=== PATIENT | male | born 1955 | race Caucasian/White ===

== ENCOUNTER 2018-06-05 00:54 | Outpatient (CLI) | payer MEDICAID, SELFPAY ==
--- NOTE | 2018-06-05 11:10 | DI.RAD_ITS ---
SYMPTOM/DIAGNOSIS: MALIGNANCY NEOPLASM OF COLON, C18.2 PA AND LATERAL CHEST: The examination is compared with previous examination of 02/20/18. Previously noted right mid lung intrapulmonary nodule has increased in size in comparison with the previous examination and now measures about 27 mm. in greatest diameter. Posterior pleural based radiodensities which appear to lie on the left are again noted and are more prominent than on the previous examination. Small left pleural effusion noted. CONCLUSION: Findings consistent with increasing size of intrapulmonary metastases from reported colon carcinoma.
== END 2018-06-05 01:14 ==
PROVIDERS: PCP Family Medicine; Visit Provider Internal Medicine Medical Oncology
DX: C18.2 Malignant neoplasm of ascending colon (principal); C78.01 Secondary malignant neoplasm of right lung; C78.02 Secondary malignant neoplasm of left lung; J90 Pleural effusion, not elsewhere classified
CPT/HCPCS: 71046

== ENCOUNTER 2018-06-05 01:44 | Outpatient (CLI) | payer MEDICAID, SELFPAY ==
[2018-06-05 12:26] LABS: Abs Immature Grans 0.01 k/cumm (0.0-0.09); Absolute Basophil Count 0.03 k/cumm (0.0-0.2); Absolute Eosinophil Count 0.32 k/cumm (0.0-0.7); Absolute Lymphocyte Count 0.96 k/cumm (1.2-3.4); Absolute Monocyte Count 0.53 k/cumm (0.11-0.7); Basophils % 0.5; Eosinophils % 5.7; HCT 44.2 % (40.0-50.0); HGB 15.1 g/dL (13.5-17.5); Immature Grans % 0.2; Mean Corp. HGB Concentration 34.2 g/dL (32.0-36.0); Mean Corpuscular Hemoglobin 27.8 pg (27.0-33.0); Mean Corpuscular Volume 81.4 fL (80-95); Mean Platelet Volume 9.2 fL (8.0-11.0); Monocytes % 9.4; Neutrophils % 67.2; Platelet Count 199 x1000/uL (130-400); RBC 5.43 m/cumm (4.50-6.00); RBC Distribution Width 14.7 % (11.8-14.1); White Blood Cell Count 5.65 k/cumm (4.4-10.8)
[2018-06-05 12:40] LABS: ALT 43 U/L (12-78); AST 33 U/L (15-37); Albumin 3.3 g/dL (3.4-5.0); Alkaline Phosphatase 125 U/L (46-116); Anion Gap 9.3 mmol/L (3-11); BUN 16 mg/dL (7-18); Bilirubin, Total 0.7 mg/dL (0.2-1.0); CO2 26.7 mmol/L (21.0-32.0); CREATININE 1.08 mg/dL (0.70-1.30); Calcium 9.1 mg/dL (8.5-10.1); Chloride 103 mmol/L (98-107); Glucose 124 mg/dL (70-100); Sodium 139 mmol/L (136-145); Total Protein 7.6 g/dL (6.4-8.2)
[2018-06-06 10:03] LABS: CEA 5.1 ng/ml
== END 2018-06-05 02:04 ==
PROVIDERS: PCP Family Medicine; Visit Provider Internal Medicine Medical Oncology
DX: E11.9 Type 2 diabetes mellitus without complications (principal); C18.2 Malignant neoplasm of ascending colon
CPT/HCPCS: 36415; 80053; 82378; 83036; 85025

== ENCOUNTER 2018-09-29 01:37 | Outpatient (CLI) | payer MEDICAID, SELFPAY ==
[2018-09-29 11:22] LABS: Abs Immature Grans 0.01 k/cumm (0.0-0.09); Absolute Basophil Count 0.04 k/cumm (0.0-0.2); Absolute Eosinophil Count 0.27 k/cumm (0.0-0.7); Absolute Lymphocyte Count 0.88 k/cumm (1.2-3.4); Absolute Monocyte Count 0.48 k/cumm (0.11-0.7); Absolute Neutrophil Count 3.86 k/cumm (1.2-6.7); Basophils % 0.7; Eosinophils % 4.9; HCT 44.6 % (40.0-50.0); HGB 14.9 g/dL (13.5-17.5); Immature Grans % 0.2; Lymphocytes % 15.9; Mean Corp. HGB Concentration 33.4 g/dL (32.0-36.0); Mean Corpuscular Hemoglobin 27.8 pg (27.0-33.0); Mean Corpuscular Volume 83.2 fL (80-95); Mean Platelet Volume 9.7 fL (8.0-11.0); Monocytes % 8.7; Neutrophils % 69.6; Platelet Count 192 x1000/uL (130-400); RBC 5.36 m/cumm (4.50-6.00); RBC Distribution Width 14.6 % (11.8-14.1); White Blood Cell Count 5.54 k/cumm (4.4-10.8)
[2018-09-29 11:42] LABS: Hemoglobin A1C 7.4 % (4.5-6.2)
[2018-09-29 11:45] LABS: ALT 44 U/L (12-78); AST 31 U/L (15-37); Albumin 3.3 g/dL (3.4-5.0); Alkaline Phosphatase 127 U/L (46-116); Anion Gap 9.5 mmol/L (3-11); BUN 15 mg/dL (7-18); Bilirubin, Total 0.6 mg/dL (0.2-1.0); CO2 26.5 mmol/L (21.0-32.0); CREATININE 1.11 mg/dL (0.70-1.30); Calcium 9.2 mg/dL (8.5-10.1); Chloride 102 mmol/L (98-107); Glucose 150 mg/dL (70-100); Potassium 4.1 mmol/L (3.5-5.1); Sodium 138 mmol/L (136-145); Total Protein 7.4 g/dL (6.4-8.2)
[2018-10-02 11:25] LABS: CEA 6.8 ng/ml
== END 2018-09-29 01:57 ==
PROVIDERS: Internal Medicine Medical Oncology; PCP Family Medicine; Visit Provider Family Medicine
DX: E11.9 Type 2 diabetes mellitus without complications (principal); C20 Malignant neoplasm of rectum
CPT/HCPCS: 36415; 80053; 82378; 83036; 85025

== ENCOUNTER 2018-10-09 00:25 | Outpatient (CLI) | payer MEDICAID, SELFPAY ==
[2018-10-09 08:47] LABS: Abs Immature Grans 0.01 k/cumm (0.0-0.09); Absolute Basophil Count 0.04 k/cumm (0.0-0.2); Absolute Eosinophil Count 0.26 k/cumm (0.0-0.7); Absolute Lymphocyte Count 0.83 k/cumm (1.2-3.4); Absolute Neutrophil Count 3.62 k/cumm (1.2-6.7); Basophils % 0.8; Eosinophils % 4.9; HCT 43.2 % (40.0-50.0); HGB 14.5 g/dL (13.5-17.5); Immature Grans % 0.2; Lymphocytes % 15.8; Mean Corp. HGB Concentration 33.6 g/dL (32.0-36.0); Mean Corpuscular Hemoglobin 27.8 pg (27.0-33.0); Mean Corpuscular Volume 82.9 fL (80-95); Mean Platelet Volume 9.3 fL (8.0-11.0); Monocytes % 9.5; Neutrophils % 68.8; Platelet Count 202 x1000/uL (130-400); RBC 5.21 m/cumm (4.50-6.00); RBC Distribution Width 14.6 % (11.8-14.1); White Blood Cell Count 5.26 k/cumm (4.4-10.8)
[2018-10-09 08:57] LABS: ALT 37 U/L (12-78); AST 31 U/L (15-37); Albumin 3.2 g/dL (3.4-5.0); Alkaline Phosphatase 124 U/L (46-116); Anion Gap 11.9 mmol/L (3-11); BUN 14 mg/dL (7-18); Bilirubin, Total 0.6 mg/dL (0.2-1.0); CO2 25.1 mmol/L (21.0-32.0); Calcium 8.3 mg/dL (8.5-10.1); Chloride 102 mmol/L (98-107); Glucose 208 mg/dL (70-100); Potassium 3.8 mmol/L (3.5-5.1); Sodium 139 mmol/L (136-145); Total Protein 7.6 g/dL (6.4-8.2)
[2018-10-09] MEDS: Omnipaque 350 MG/ML 50 ML BTL PO ×2 (09:10→10:13)
[2018-10-09] MEDS: Breeza Beverage 473 ML BTL PO (09:11)
--- NOTE | 2018-10-09 09:41 | DI.CT_ITS ---
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 Most recent comparison is 06/03/17. CT SCAN OF THE ABDOMEN AND PELVIS: The liver is normal in size. No evidence of a hepatic mass is seen. The portal, and superior mesenteric and splenic veins are all patent. The patient appears to be status post cholecystectomy. No biliary ductal dilatation is seen. The pancreas is unremarkable. There are a few calcifications seen in the spleen, likely reflecting prior granulomatous disease. The spleen is otherwise unremarkable. No evidence of an adrenal mass is present. The kidneys show normal and symmetric enhancement. No suspicious solid renal mass or obstruction is seen. There is a small cyst on the lower pole of the right kidney. The urinary bladder is intact and incompletely distended. The reproductive organs are unremarkable. There is atherosclerosis of the abdominal aorta but no aneurysmal dilatation is present. No evidence of a significant abdominal or pelvic adenopathy, ascites or pneumoperitoneum is present. There has been resection of the descending and sigmoid colon. There is a left colostomy in place. There does appear to be a moderate-sized fat-containing parastomal hernia. There is a right-sided enterostomy. The ostomy site contains a herniation of an unremarkable loop of small bowel. The herniated small bowel shows no evidence of obstruction or strangulation. The remainder of the bowel is unremarkable. No aggressive osseous lesions are identified. IMPRESSION: No evidence of abdominal or pelvic metastatic disease. CT SCAN OF THE CHEST: There is atherosclerosis of the thoracic aorta but no aneurysmal dilatation is seen. The heart size is within normal limits. No significant pericardial effusion is present. Coronary artery calcifications are seen. No significant thoracic adenopathy is appreciated. There is a moderate-sized left pleural effusion. No significant right pleural effusion is seen. Within the left pleural effusion, there do appear to be soft tissue nodules along the wall suspicious for metastases. There are several pulmonary masses present. There is a 2.2 x 1.9 cm mass in the right lower lobe. This has shown interval increase in size since 06/03/17, at which time it measured 1 x 1.2 cm. The largest mass in the left lower lobe measures 1.9 x 1.9 cm and was not present on the prior examination. Area of consolidation is seen adjacent to the right pleural effusion. This may represent atelectasis or pneumonia. No aggressive osseous lesions are seen. IMPRESSION: 1. Findings consistent with thoracic metastatic disease with multiple pulmonary nodules, which have shown interval increase in size and number since the most recent CT scan from 06/03/17. 2. Moderate-sized left pleural effusion with soft tissues seen within the pleural fluid suspicious for metastases. 3. Left basilar subjacent infiltrate, which may represent atelectasis or pneumonia.
[2018-10-11 09:21] LABS: CEA 5.2 ng/ml
== END 2018-10-09 00:45 ==
PROVIDERS: PCP Family Medicine; Visit Provider Nurse Practitioner Family
DX: C20 Malignant neoplasm of rectum (principal); C18.2 Malignant neoplasm of ascending colon; C78.02 Secondary malignant neoplasm of left lung; C78.01 Secondary malignant neoplasm of right lung; J90 Pleural effusion, not elsewhere classified; R91.8 Other nonspecific abnormal finding of lung field
CPT/HCPCS: 36415; 74177; 80053; 71260; 82378; 85025; Q9967

== ENCOUNTER 2018-11-20 01:01 | Outpatient (CLI) | payer MEDICAID, SELFPAY ==
--- NOTE | 2018-11-20 09:52 | DI.RAD_ITS ---
SYMPTOMS/DIAGNOSIS: METASTATIC RECTAL CA, LUNG LESIONS AND PLEURAL EFFUSION, C18.2 PA AND LATERAL CHEST: Examination is compared with the previous examination of 06/05/18. The patient reportedly has known intrapulmonary metastases from colon carcinoma. Pleural- based radiodensity projected posteriorly on the lateral view is more prominent than on the previous examination. Right-sided apparent intrapulmonary nodule appears to have increased in size as well and now measures roughly 3.2 cm in greatest diameter. No gross consolidation seen. No significant pleural effusion seen. Cardiac size within normal limits. CONCLUSION: Interval increase in size of presumed metastatic lesions.
== END 2018-11-20 01:21 ==
PROVIDERS: PCP Family Medicine; Visit Provider Internal Medicine Hematology & Oncology
DX: C18.2 Malignant neoplasm of ascending colon (principal); R91.8 Other nonspecific abnormal finding of lung field
CPT/HCPCS: 71046

== ENCOUNTER 2018-11-20 01:59 | Outpatient (CLI) | payer MEDICAID, SELFPAY ==
[2018-11-20 10:35] LABS: Abs Immature Grans 0.01 k/cumm (0.0-0.09); Absolute Basophil Count 0.03 k/cumm (0.0-0.2); Absolute Eosinophil Count 0.18 k/cumm (0.0-0.7); Absolute Lymphocyte Count 0.98 k/cumm (1.2-3.4); Absolute Monocyte Count 0.55 k/cumm (0.11-0.7); Absolute Neutrophil Count 3.98 k/cumm (1.2-6.7); Basophils % 0.5; Eosinophils % 3.1; HCT 45.3 % (40.0-50.0); HGB 15.4 g/dL (13.5-17.5); Immature Grans % 0.2; Lymphocytes % 17.1; Mean Corpuscular Hemoglobin 27.7 pg (27.0-33.0); Mean Corpuscular Volume 81.5 fL (80-95); Mean Platelet Volume 9.2 fL (8.0-11.0); Monocytes % 9.6; Neutrophils % 69.5; Platelet Count 195 x1000/uL (130-400); RBC 5.56 m/cumm (4.50-6.00); RBC Distribution Width 14.6 % (11.8-14.1); White Blood Cell Count 5.73 k/cumm (4.4-10.8)
[2018-11-20 11:32] LABS: ALT 41 U/L (12-78); AST 26 U/L (15-37); Albumin 3.6 g/dL (3.4-5.0); Alkaline Phosphatase 121 U/L (46-116); Anion Gap 10.1 mmol/L (3-11); BUN 15 mg/dL (7-18); Bilirubin, Total 0.8 mg/dL (0.2-1.0); CO2 26.9 mmol/L (21.0-32.0); CREATININE 1.14 mg/dL (0.70-1.30); Calcium 9.5 mg/dL (8.5-10.1); Chloride 101 mmol/L (98-107); Glucose 161 mg/dL (70-100); Potassium 4.5 mmol/L (3.5-5.1); Sodium 138 mmol/L (136-145); Total Protein 7.6 g/dL (6.4-8.2)
[2018-12-11 10:45] LABS: CEA 5.1 ng/ml
== END 2018-11-20 02:19 ==
PROVIDERS: Nurse Practitioner Family; PCP Family Medicine; Visit Provider Family Medicine
DX: C18.2 Malignant neoplasm of ascending colon (principal)
CPT/HCPCS: 36415; 80053; 82378; 85025

== ENCOUNTER 2019-02-24 01:52 | Outpatient (CLI) | payer MEDICAID, SELFPAY ==
[2019-02-26 06:36] LABS: Hemoglobin A1C 7.1 % (4.5-6.2)
== END 2019-02-24 02:12 ==
PROVIDERS: PCP Family Medicine; Visit Provider Family Medicine
DX: E11.9 Type 2 diabetes mellitus without complications (principal)
CPT/HCPCS: 36415; 83036

== ENCOUNTER 2019-03-05 00:36 | Outpatient (CLI) | payer MEDICAID, SELFPAY ==
--- NOTE | 2019-03-05 09:18 | DI.RAD_ITS ---
SYMPTOMS/DIAGNOSIS: MALIGNANT NEOPLASM ASCENDING COLON, F/U METS FROM COLON CA, C18.2 PA AND LATERAL CHEST: Comparison 11/20/18. The heart size and pulmonary vasculature are within normal limits. There are again seen multiple pulmonary nodules consistent with metastatic disease. The nodule in the right lower lobe has increased in size. It measures 4.1 cm craniocaudad x 3.9 cm transverse compared with 3.3 x 3 cm on the prior examination. There also appears to be a new pulmonary nodule overlying the heart on the lateral view. It measures 3 cm craniocaudad x 2 cm AP. The pleural based nodule posteriorly measures 6.2 cm craniocaudad on the lateral view vs 6.3 cm on the prior examination. No pleural effusions or pneumothoraces are identified. No focal consolidating infiltrates are seen. IMPRESSION: Increase in size of previously noted pulmonary nodule. New pulmonary nodule identified in the anterior chest on the lateral view. The findings suggest overall progression of pulmonary metastatic disease since 11/20/18.
[2019-03-05 10:08] LABS: Abs Immature Grans 0.01 k/cumm (0.0-0.09); Absolute Basophil Count 0.04 k/cumm (0.0-0.2); Absolute Eosinophil Count 0.34 k/cumm (0.0-0.7); Absolute Lymphocyte Count 0.83 k/cumm (1.2-3.4); Absolute Monocyte Count 0.59 k/cumm (0.11-0.7); Absolute Neutrophil Count 3.28 k/cumm (1.2-6.7); Basophils % 0.8; Eosinophils % 6.7; HCT 44.9 % (40.0-50.0); HGB 15.5 g/dL (13.5-17.5); Immature Grans % 0.2; Lymphocytes % 16.3; Mean Corp. HGB Concentration 34.5 g/dL (32.0-36.0); Mean Corpuscular Hemoglobin 27.9 pg (27.0-33.0); Mean Corpuscular Volume 80.9 fL (80-95); Monocytes % 11.6; Neutrophils % 64.4; Platelet Count 206 x1000/uL (130-400); RBC 5.55 m/cumm (4.50-6.00); RBC Distribution Width 14.8 % (11.8-14.1); White Blood Cell Count 5.09 k/cumm (4.4-10.8)
[2019-03-05 10:31] LABS: ALT 44 U/L (12-78); AST 32 U/L (15-37); Albumin 3.5 g/dL (3.4-5.0); Alkaline Phosphatase 131 U/L (46-116); Anion Gap 12.1 mmol/L (3-11); BUN 15 mg/dL (7-18); Bilirubin, Total 0.6 mg/dL (0.2-1.0); CO2 22.9 mmol/L (21.0-32.0); CREATININE 1.08 mg/dL (0.70-1.30); Chloride 104 mmol/L (98-107); Glucose 131 mg/dL (70-100); Potassium 3.9 mmol/L (3.5-5.1); Sodium 139 mmol/L (136-145); Total Protein 7.3 g/dL (6.4-8.2)
[2019-03-06 10:25] LABS: CEA 5.6 ng/ml
== END 2019-03-05 00:56 ==
PROVIDERS: PCP Family Medicine; Visit Provider Internal Medicine Hematology & Oncology
DX: C18.2 Malignant neoplasm of ascending colon (principal); C78.01 Secondary malignant neoplasm of right lung
CPT/HCPCS: 36415; 80053; 71046; 82378; 85025

== ENCOUNTER 2019-06-04 00:57 | Outpatient (CLI) | payer MEDICAID, SELFPAY ==
--- NOTE | 2019-06-04 10:30 | DI.RAD_ITS ---
EXAM: XR CHEST 2V PA LATERAL INDICATION: MALIGNANT NEOPLASM ASCENDING COLON, C18.2, F/U METS FROM COLON CANCER. COMPARISON: XR CHEST 2V PA LATERAL from 03/05/2019 TECHNIQUE: 2D digital imaging was performed. FINDINGS: The examination is compared with most recent chest film of March 05. Heart is not enlarged. Lungs are clear at the apices. Previously described right mid lung mass again noted and unchanged. There appears to be a difficult interval increase in left pleural based radiodensities, fluid and/or masses . IMPRESSION: Increased prominence of left pleural-based radiodensities, fluid and/or masses. If clinically indica papo additional evaluation with CT would be helpful in delineating the exact nature of these changes.
[2019-06-04 10:46] LABS: Hemoglobin A1C 6.9 % (4.5-6.2)
[2019-06-04 10:52] LABS: Abs Immature Grans 0.02 k/cumm (0.0-0.09); Absolute Basophil Count 0.03 k/cumm (0.0-0.2); Absolute Eosinophil Count 0.39 k/cumm (0.0-0.7); Absolute Lymphocyte Count 0.84 k/cumm (1.2-3.4); Absolute Monocyte Count 0.52 k/cumm (0.11-0.7); Absolute Neutrophil Count 3.43 k/cumm (1.2-6.7); Basophils % 0.6; Eosinophils % 7.5; HCT 42.6 % (40.0-50.0); HGB 14.5 g/dL (13.5-17.5); Immature Grans % 0.4; Lymphocytes % 16.1; Mean Corpuscular Hemoglobin 27.4 pg (27.0-33.0); Mean Corpuscular Volume 80.5 fL (80-95); Mean Platelet Volume 8.9 fL (8.0-11.0); Monocytes % 9.9; Neutrophils % 65.5; Platelet Count 224 x1000/uL (130-400); RBC 5.29 m/cumm (4.50-6.00); RBC Distribution Width 14.8 % (11.8-14.1); White Blood Cell Count 5.23 k/cumm (4.4-10.8)
[2019-06-04 10:55] LABS: ALT 28 U/L (16-63); AST 26 U/L (15-37); Albumin 3.3 g/dL (3.4-5.0); Alkaline Phosphatase 112 U/L (46-116); Anion Gap 8.7 mmol/L (3-11); BUN 14 mg/dL (7-18); Bilirubin, Total 0.7 mg/dL (0.2-1.0); CO2 27.3 mmol/L (21.0-32.0); Calcium 8.8 mg/dL (8.5-10.1); Chloride 104 mmol/L (98-107); Glucose 107 mg/dL (70-100); Potassium 4.3 mmol/L (3.5-5.1); Sodium 140 mmol/L (136-145)
[2019-06-05 09:59] LABS: CEA 5.6 ng/ml
== END 2019-06-04 01:17 ==
PROVIDERS: PCP Family Medicine; Visit Provider Internal Medicine Hematology & Oncology
DX: C18.2 Malignant neoplasm of ascending colon (principal); J98.4 Other disorders of lung; C78.01 Secondary malignant neoplasm of right lung; E11.9 Type 2 diabetes mellitus without complications
CPT/HCPCS: 36415; 80053; 71046; 82378; 83036; 85025

== ENCOUNTER 2019-08-16 09:25 | Outpatient (CLI) | payer MEDICAID, SELFPAY ==
[2019-08-16 11:12] LABS: Abs Immature Grans 0.01 k/cumm (0.0-0.09); Absolute Basophil Count 0.03 k/cumm (0.0-0.2); Absolute Eosinophil Count 0.22 k/cumm (0.0-0.7); Absolute Lymphocyte Count 0.95 k/cumm (1.2-3.4); Absolute Monocyte Count 0.56 k/cumm (0.11-0.7); Basophils % 0.5; Eosinophils % 3.7; HCT 42.5 % (40.0-50.0); HGB 14.4 g/dL (13.5-17.5); Immature Grans % 0.2; Lymphocytes % 16.2; Mean Corp. HGB Concentration 33.9 g/dL (32.0-36.0); Mean Corpuscular Hemoglobin 27.2 pg (27.0-33.0); Mean Corpuscular Volume 80.2 fL (80-95); Mean Platelet Volume 8.5 fL (8.0-11.0); Monocytes % 9.5; Neutrophils % 69.9; Platelet Count 260 x1000/uL (130-400); White Blood Cell Count 5.87 k/cumm (4.4-10.8)
[2019-08-16 11:55] LABS: ALT 31 U/L (16-63); AST 28 U/L (15-37); Albumin 3.3 g/dL (3.4-5.0); Alkaline Phosphatase 118 U/L (46-116); Anion Gap 8.5 mmol/L (3-11); BUN 12 mg/dL (7-18); Bilirubin, Total 0.5 mg/dL (0.2-1.0); CO2 26.5 mmol/L (21.0-32.0); CREATININE 1.03 mg/dL (0.70-1.30); Calcium 8.7 mg/dL (8.5-10.1); Chloride 104 mmol/L (98-107); Glucose 120 mg/dL (74-106); Sodium 139 mmol/L (136-145); Total Protein 6.9 g/dL (6.4-8.2)
[2019-08-17 11:34] LABS: CEA 8.2 ng/mL (See Note)
== END 2019-08-16 09:45 ==
PROVIDERS: PCP Family Medicine; Visit Provider Internal Medicine Hematology & Oncology
DX: C18.2 Malignant neoplasm of ascending colon (principal); C77.2 Secondary and unspecified malignant neoplasm of intra-abdominal lymph nodes; E11.9 Type 2 diabetes mellitus without complications
CPT/HCPCS: 36415; 80053; 82378; 83036; 85025

== ENCOUNTER 2019-11-15 00:52 | Outpatient (CLI) | payer MEDICAID, SELFPAY ==
[2019-11-15 08:58] LABS: Abs Immature Grans 0.02 k/cumm (0.0-0.09); Absolute Basophil Count 0.03 k/cumm (0.0-0.2); Absolute Eosinophil Count 0.17 k/cumm (0.0-0.7); Absolute Lymphocyte Count 1.05 k/cumm (1.2-3.4); Absolute Monocyte Count 0.56 k/cumm (0.11-0.7); Absolute Neutrophil Count 4.03 k/cumm (1.2-6.7); Basophils % 0.5; Eosinophils % 2.9; HCT 44.7 % (40.0-50.0); HGB 14.8 g/dL (13.5-17.5); Immature Grans % 0.3 %; Lymphocytes % 17.9; Mean Corp. HGB Concentration 33.1 g/dL (32.0-36.0); Mean Corpuscular Hemoglobin 25.8 pg (27.0-33.0); Mean Platelet Volume 8.8 fL (8.0-11.0); Monocytes % 9.6; Neutrophils % 68.8; Platelet Count 259 x1000/uL (130-400); RBC 5.73 m/cumm (4.50-6.00); RBC Distribution Width 15.3 % (11.8-14.1); White Blood Cell Count 5.86 k/cumm (4.4-10.8)
[2019-11-15 09:14] LABS: ALT 34 U/L (16-63); AST 25 U/L (15-37); Albumin 3.3 g/dL (3.4-5.0); Alkaline Phosphatase 109 U/L (46-116); Anion Gap 8.6 mmol/L (3-11); BUN 14 mg/dL (7-18); Bilirubin, Total 0.6 mg/dL (0.2-1.0); CO2 28.4 mmol/L (21.0-32.0); CREATININE 1.18 mg/dL (0.70-1.30); Chloride 104 mmol/L (98-107); Glucose 67 mg/dL (74-106); Potassium 3.8 mmol/L (3.5-5.1); Sodium 141 mmol/L (136-145)
--- NOTE | 2019-11-15 10:05 | DI.CT_ITS ---
EXAM: CT CHEST/ABD/PEL W CLINICAL HISTORY: colon ca, C18.2,restaging exam TECHNIQUE: Imaging Protocol: Axial computed tomography images with coronal and sagittal reformatted images were created and reviewed CONTRAST MATERIAL: Intravenous: Omnipaque 350 Contrast Oral: yes COMPARISON: CT CHEST/ABD/PEL W from 10/09/2018 FINDINGS: CHEST: Tracheobronchial tree: Patent where visualized. Mediastinum and Lacie: No dominant adenopathy or fluid collection. Pulmonary parenchyma: There has been interval increase in size of right lower lobe pulmonary mass. I t measures 3.5 x 2.8 x 3.9 cm. This compares with 2.5 x 2.1 x 2.5 cm. There has also been interval increase in size of the nodule in the posterior aspect of the left lower lobe. It measures 3.1 x 2.5 cm compared with 2.2 x 1.6 cm on the prior examination. No architectural distortion. Infiltrates in the left upper and left lower lobes which may represent atelectasis, pneumonia or metastatic disease . Pleura: Since the prior examination, there has been progression of the pleural metastatic disease in the left hemithorax. More extensive thickening of the pleura is seen throughout the left hemithorax. There is a persistent small left pleural effusion. Heart: The heart is not dilated. Moderate coronary artery calcification is present. No significant p ericardial effusion. Aorta: Thoracic aorta non-dilated. Atherosclerosis. Lymph nodes: Within normal limits. Bones:Normal. ABDOMEN: Liver: Normal density. No measurable mass. Portal, Superior Mesenteric, and Splenic Veins: Unremarkable. Gallbladder and Biliary Tract: Status post cholecystectomy. No biliary ductal dilatation. Pancreas: Normal density, no abnormal calcifications or inflammatory process. Spleen: Splenomegaly. Adrenals: No masses seen. Kidneys: Normal size, contour and axis. No radiodense stones or obstructive uropathy. Stable right re nal cyst. No solid renal mass. Abdominal Aorta: Abdominal portion non-dilated. Atherosclerosis. Bowel: No obstruction or bowel wall thickening. Appendix is not visualized. There is again seen a le ft-sided colostomy with a fat containing large peristomal hernia. There is also again seen an entero stomy in the right abdominal wall. There is an unremarkable herniated loop of bowel in the stoma. N o evidence of obstruction. Peritoneal Cavity: No ascites, collection or mesenteric inflammatory response. Lymph Nodes: Within normal limits. Bones: Mild degenerative changes are present. No aggressive osseous lesions are present. Soft Tissues: Unremarkable. PELVIS: Bladder: Symmetric distention, no gross wall thickening. Reproductive Organs: Unremarkable as visualized. Lymph Nodes: Within normal limits. Bones: Degenerative changes are present. No aggressive osseous lesions are identified. IMPRESSION: 1. No evidence of abdominal or pelvic metastatic disease. 2. Interval increase in size of the pulmonary metastases. 3. Interval progression of the pleural metastatic disease in the left hemithorax. 4. Left upper and left lower lobe infiltrates which may represent atelectasis or pneumonia, metastati c disease should also be considered. RADIATION DOSE DELIVERED: DATA REPOSITORY: All CT scans at this facility are submitted to the National Radiology Data Registry (NRDR) Dose Index Registry (DIR) with the [employer] ([employer]). RADIATION OPTIMIZATION: All CT scans at this facility use at least one of these dose optimization te chniques: automated exposure control; mA and/or kV adjustment per patient size (includes targeted exa ms where dose is matched to clinical indication); or iterative reconstruction.
[2019-11-15] MEDS: Normal Saline - Diluent 50 ML VIAL IV (10:21)
[2019-11-15] MEDS: Omnipaque 350 MG/ML 100 ML BTL IJ (10:22)
[2019-11-16 09:13] LABS: CEA 7.9 ng/mL (See Note)
== END 2019-11-15 01:12 ==
PROVIDERS: PCP Family Medicine; Visit Provider Internal Medicine Hematology & Oncology
DX: C18.2 Malignant neoplasm of ascending colon (principal); C78.01 Secondary malignant neoplasm of right lung; C78.02 Secondary malignant neoplasm of left lung; C78.2 Secondary malignant neoplasm of pleura; J90 Pleural effusion, not elsewhere classified; R16.1 Splenomegaly, not elsewhere classified; Z93.3 Colostomy status
CPT/HCPCS: 74177; 80053; 71260; 82378; 85025; J3490

== ENCOUNTER 2020-03-19 00:32 | Outpatient (CLI) | payer MEDICAID, SELFPAY ==
--- NOTE | 2020-03-19 | DI.CT_ITS ---
EXAM: CT CHEST/ABD/PEL W CLINICAL HISTORY: COLON CA,C18.2,RESTAGING EXAM. TECHNIQUE: Imaging Protocol: Axial computed tomography images with coronal and sagittal reformatted images were created and reviewed CONTRAST MATERIAL: Intravenous: Omnipaque 350 Contrast volume:100 ml Oral: yes COMPARISON: CT CT CHEST/ABD/PEL W from 11/15/2019 FINDINGS: CHEST: Thyroid: Normal Tracheobronchial tree: Patent where visualized. Mediastinum and Lacie: No dominant adenopathy or fluid collection. Pulmonary parenchyma: There has been interval increase in size of the right lower lobe mass, now la nena uring 4.1 x 2.9 compared to 3.5 x 2.8 cm. The left lower lobe mass now measures 3.8 x 2.7 cm compare d with 3.1 by 2.5 cm. There is again noted to be extensive pleural metastases with marked nodularity of the pleura along the left chest. Findings appear to have slightly increased when compared with t he previous exam. Lymph nodes: Within normal limits. Aorta: Thoracic portion non-dilated. Mild atherosclerotic changes. Heart: Normal heart size. Mitral valve calcifications. Coronary artery calcifications. Bones: No rib destruction is evident. No lytic or blastic lesions are identified in the spine or marilia rnum. ABDOMEN: Liver: Mild fatty infiltration.. No measurable mass. Gallbladder and biliary tract: Status post cholecystectomy. Pancreas: Normal density, no abnormal calcifications or inflammatory process. Spleen: Stable splenomegaly. Kidneys: Normal size, contour and axis. No radiodense stones or obstructive uropathy. No masses seen. Right renal cyst. Adrenal glands: No masses seen. Aorta: Abdominal portion non-dilated. Moderate atherosclerotic changes. Lymph nodes: Within normal limits. PELVIS: Bladder: Symmetric distention, no gross wall thickening. Bowel: Right lower quadrant ostomy. Stable findings of left sided abdominal wall hernia containing a loop of nonobstructed small bowel as well as dehiscence of the anterior abdominal wall. No obstruct ion or bowel wall thickening. Peritoneal cavity: No ascites, collection or mesenteric inflammatory response. Bones: Degenerative changes. No lytic or blastic lesions. Reproductive organs: Within normal limits. IMPRESSION: Continued increase in size of bilateral pulmonary metastases as well as left-sided pleural metastases . No evidence of metastatic disease in the abdomen or pelvis. RADIATION DOSE DELIVERED: Total DLP DATA REPOSITORY: All CT scans at this facility are submitted to the National Radiology Data Registry (NRDR) Dose Index Registry (DIR) with the [employer] (ACR). RADIATION OPTIMIZATION: All CT scans at this facility use at least one of these dose optimization te chniques: automated exposure control; mA and/or kV adjustment per patient size (includes targeted exa ms where dose is matched to clinical indication); or iterative reconstruction.
[2020-03-19] MEDS: Breeza Beverage 473 ML BTL PO ×2 (08:19→08:21)
[2020-03-19] MEDS: Omnipaque 350 MG/ML 50 ML BTL PO (08:20)
[2020-03-19 08:30] LABS: Abs Immature Grans 0.02 10^3/uL (0.0-0.06); Absolute Basophil Count 0.03 10^3/uL (0.0-0.2); Absolute Eosinophil Count 0.27 10^3/uL (0.0-0.7); Absolute Lymphocyte Count 1.01 10^3/uL (1.2-3.4); Absolute Monocyte Count 0.43 10^3/uL (0.1-0.8); Absolute Neutrophil Count 3.28 10^3/uL (1.2-6.7); Basophils % 0.6; Eosinophils % 5.4; Immature Grans % 0.4; MCH 26.6 pg (27.0-33.0); MCHC 33.3 % (32.0-36.0); MCV 79.8 fL (80-95); MPV 8.7 fL (8.0-11.0); Monocytes % 8.5; Neutrophils % 65.1; Platelet Count 214 10^3/uL (130-400); RBC 5.64 10^6/uL (4.36-5.78); RDW 15.7 % (11.8-14.1); RDW-SD 44.3 fL; WBC 5.04 10^3/uL (4.4-10.8)
[2020-03-19 08:51] LABS: ALT 27 U/L (16-63); AST 27 U/L (15-37); Albumin 3.4 g/dL (3.4-5.0); Alkaline Phosphatase 106 U/L (46-116); Anion Gap 8.3 mmol/L (3-11); BUN 12 mg/dL (7-18); Bilirubin, Total 0.7 mg/dL (0.2-1.0); CO2 27.7 mmol/L (21.0-32.0); CREATININE 1.17 mg/dL (0.70-1.30); Calcium 9.1 mg/dL (8.5-10.1); Chloride 101 mmol/L (98-107); Glucose 64 mg/dL (74-106); Potassium 3.5 mmol/L (3.5-5.1); Sodium 137 mmol/L (136-145); Total Protein 7.6 g/dL (6.4-8.2)
[2020-03-19 09:00] LABS: Hemoglobin A1C 6.6 % (3.8-5.6)
[2020-03-19] MEDS: Normal Saline - Diluent 50 ML VIAL IV (09:41)
[2020-03-19] MEDS: Omnipaque 350 MG/ML 100 ML BTL IJ (09:42)
[2020-03-19] MEDS: Normal Saline Flush 10 ML SYR IVP (09:45)
[2020-03-19 17:39] LABS: CEA 7.2 ng/mL (See Note)
== END 2020-03-19 00:52 ==
PROVIDERS: PCP Family Medicine; Visit Provider Internal Medicine Hematology & Oncology
DX: C18.2 Malignant neoplasm of ascending colon (principal)
CPT/HCPCS: 74177; 80053; 71260; 82378; 83036; 85025; J3490; Q9967

== ENCOUNTER 2020-07-08 02:04 | Outpatient (CLI) | payer MEDICAID, SELFPAY ==
[2020-07-08 13:20] LABS: Hemoglobin A1C 7.1 % (<5.7)
== END 2020-07-08 02:24 ==
PROVIDERS: PCP Family Medicine; Visit Provider Family Medicine
DX: E11.9 Type 2 diabetes mellitus without complications (principal)
CPT/HCPCS: 36415; 83036

== ENCOUNTER 2020-10-02 01:25 | Outpatient (CLI) | payer MEDICAID, SELFPAY ==
--- NOTE | 2020-10-02 | DI.RAD_ITS ---
EXAM: XR CHEST 2V PA LATERAL CLINICAL HISTORY: RECTAL CA METASTASIZED TO LUNG, C20,C78.00,F/U LUNG METS TECHNIQUE: 2D digital imaging was performed. COMPARISON: CR XR CHEST 2V PA LATERAL from 06/04/2019 FINDINGS: There has been significant interval increase in size bilateral pulmonary metastases. The right-side d nodule now measures 5.5 cm in diameter compared with 3.7 cm on the previous exam. There is now a m ass visible at the left lung apex as well as superior to the aortic arch. Multiple large nodules are seen and left lower lobe. There is small left effusion. The heart size is normal. IMPRESSION: Significant interval increase in size pulmonary metastases and apparently new metastases in the left upper lobe. DATA REPOSITORY: RADIATION DOSE DELIVERED:
== END 2020-10-02 01:26 ==
LOC: DI 01:25
PROVIDERS: PCP Family Medicine; Visit Provider Internal Medicine Hematology & Oncology
DX: C20 Malignant neoplasm of rectum (principal); C78.01 Secondary malignant neoplasm of right lung; C78.02 Secondary malignant neoplasm of left lung
CPT/HCPCS: 71046

== ENCOUNTER 2020-10-02 02:48 | Outpatient (CLI) | payer MEDICAID, SELFPAY ==
[2020-10-02 14:08] LABS: Abs Immature Grans 0.04 10^3/uL (0.0-0.06); Absolute Basophil Count 0.07 10^3/uL (0.0-0.2); Absolute Eosinophil Count 0.22 10^3/uL (0.0-0.7); Absolute Lymphocyte Count 1.14 10^3/uL (1.2-3.4); Absolute Monocyte Count 0.51 10^3/uL (0.1-0.8); Absolute Neutrophil Count 3.94 10^3/uL (1.2-6.7); Basophils % 1.2; Eosinophils % 3.7; HCT 46.3 % (40.0-50.0); HGB 15.6 g/dL (13.5-17.5); Immature Grans % 0.7; Lymphocytes % 19.3; MCH 27.1 pg (27.0-33.0); MCHC 33.7 % (32.0-36.0); MCV 80.5 fL (80-95); Monocytes % 8.6; Neutrophils % 66.5; Nucleated RBC 0 %; Platelet Count 217 10^3/uL (130-400); RBC 5.75 10^6/uL (4.36-5.78); RDW 14.8 % (11.8-14.1); RDW-SD 42.6 fL; WBC 5.92 10^3/uL (4.4-10.8)
[2020-10-02 14:36] LABS: ALT 36 U/L (16-63); AST 30 U/L (15-37); Albumin 3.6 g/dL (3.4-5.0); Alkaline Phosphatase 118 U/L (46-116); Anion Gap 9.7 mmol/L (3-11); BUN 15 mg/dL (7-18); Bilirubin, Total 0.7 mg/dL (0.2-1.0); CO2 26.3 mmol/L (21.0-32.0); CREATININE 1.2 mg/dL (0.70-1.30); Calcium 9.4 mg/dL (8.5-10.1); Chloride 102 mmol/L (98-107); Glucose 90 mg/dL (74-106); Potassium 3.5 mmol/L (3.5-5.1); Sodium 138 mmol/L (136-145); Total Protein 8.2 g/dL (6.4-8.2)
[2020-10-02 14:39] LABS: COMMENT (LAB VIEW ONLY) 124.43 mg/dL; Microalb ug/mg Crea 29.3 ug/mg Cr
[2020-10-02 14:40] LABS: Hemoglobin A1C 7.2 % (<5.7)
[2020-10-02 22:18] LABS: CEA 11.5 ng/mL (See Note)
== END 2020-10-02 02:49 | disposition home or self-care (01) ==
LOC: LBO 02:48
PROVIDERS: PCP Family Medicine; Visit Provider Internal Medicine Hematology & Oncology
DX: E11.40 Type 2 diabetes mellitus with diabetic neuropathy, unspecified (principal); R91.8 Other nonspecific abnormal finding of lung field; C18.9 Malignant neoplasm of colon, unspecified; C77.2 Secondary and unspecified malignant neoplasm of intra-abdominal lymph nodes
CPT/HCPCS: 36415; 80053; 82043; 82378; 82570; 83036; 85025

== ENCOUNTER 2020-11-27 15:15 | Outpatient (REF) | payer MEDICAID, SELFPAY ==
--- NOTE | 2020-11-27 14:45 | SKI_PTH ---
PATIENT: Xavi Mccollum LOC: [facility] U#:[id number] AGE/SX: 65/M ROOM: RE11/27/[address]: Yuridia Barerra : 1955 BED: DIS: 11/27/2020 SPEC #: [id number] RECD: 11/27/20 17:30 STATUS: JAYJAY REIsa #: [id number] DONNY: 11/27/20 14:[address]: Yuridia Barrera DEPT: Surgical Specimen RECD BY: Carisa Conroy ENTERED: 11/27/20 17:32 SP TYPE: NIKITA DAVIES DR: Elizabeth Razo MD, DC Tissues: 1 - SKIN BIOPSY(SHAVE/PUNCH) Procedures: SKIN LEVEL 4 Comments: [id number]
== END 2020-11-27 15:16 | disposition home or self-care (01) ==
LOC: LBN 15:15
PROVIDERS: PCP Family Medicine; Visit Provider Surgery
DX: C79.2 Secondary malignant neoplasm of skin (principal)
CPT/HCPCS: 88305

== ENCOUNTER 2020-12-19 07:35 | Outpatient (CLI) | payer MEDICAID, SELFPAY ==
[2020-12-19 11:48] LABS: Abs Immature Grans 0.01 10^3/uL (0.0-0.06); Absolute Basophil Count 0.06 10^3/uL (0.0-0.2); Absolute Eosinophil Count 0.25 10^3/uL (0.0-0.7); Absolute Lymphocyte Count 0.98 10^3/uL (1.2-3.4); Absolute Monocyte Count 0.48 10^3/uL (0.1-0.8); Absolute Neutrophil Count 3.74 10^3/uL (1.2-6.7); Basophils % 1.1; Eosinophils % 4.5; HCT 44.4 % (40.0-50.0); HGB 14.7 g/dL (13.5-17.5); Immature Grans % 0.2; Lymphocytes % 17.8; MCH 26.7 pg (27.0-33.0); MCHC 33.1 % (32.0-36.0); MCV 80.6 fL (80-95); MPV 8.8 fL (8.0-11.0); Monocytes % 8.7; Neutrophils % 67.7; Nucleated RBC 0 %; Platelet Count 210 10^3/uL (130-400); RBC 5.51 10^6/uL (4.36-5.78); RDW 14.7 % (11.8-14.1); RDW-SD 42.5 fL; WBC 5.52 10^3/uL (4.4-10.8)
[2020-12-19 11:56] LABS: ALT 31 U/L (16-63); AST 29 U/L (15-37); Albumin 3.4 g/dL (3.4-5.0); Alkaline Phosphatase 120 U/L (46-116); Anion Gap 8.8 mmol/L (3-11); BUN 13 mg/dL (7-18); Bilirubin, Total 0.7 mg/dL (0.2-1.0); CO2 28.2 mmol/L (21.0-32.0); CREATININE 1.3 mg/dL (0.70-1.30); Calcium 9.2 mg/dL (8.5-10.1); Chloride 102 mmol/L (98-107); Estimated GFR 55.75 (mL/min/1.73m2); Glucose 158 mg/dL (74-106); Potassium 4.3 mmol/L (3.5-5.1); Sodium 139 mmol/L (136-145); Total Protein 7.8 g/dL (6.4-8.2)
[2020-12-19 17:07] LABS: CEA 11.5 ng/mL (See Note)
== END 2020-12-19 07:36 | disposition home or self-care (01) ==
PROVIDERS: PCP Family Medicine; Visit Provider Internal Medicine Hematology & Oncology
DX: C18.2 Malignant neoplasm of ascending colon (principal)
CPT/HCPCS: 36415; 80053; 82378; 85025

== ENCOUNTER 2021-01-08 03:14 | Outpatient (CLI) | payer MEDICAID, SELFPAY ==
[2021-01-08 14:34] LABS: Abs Immature Grans 0.04 10^3/uL (0.0-0.06); Absolute Basophil Count 0.05 10^3/uL (0.0-0.2); Absolute Eosinophil Count 0.28 10^3/uL (0.0-0.7); Absolute Lymphocyte Count 1.14 10^3/uL (1.2-3.4); Absolute Monocyte Count 0.58 10^3/uL (0.1-0.8); Absolute Neutrophil Count 3.78 10^3/uL (1.2-6.7); Basophils % 0.9; Eosinophils % 4.8; HCT 43.5 % (40.0-50.0); HGB 14.7 g/dL (13.5-17.5); Immature Grans % 0.7; Lymphocytes % 19.4; MCH 27.3 pg (27.0-33.0); MCHC 33.8 % (32.0-36.0); MCV 80.7 fL (80-95); MPV 8.1 fL (8.0-11.0); Monocytes % 9.9; Neutrophils % 64.3; Nucleated RBC 0 %; Platelet Count 188 10^3/uL (130-400); RBC 5.39 10^6/uL (4.36-5.78); RDW 17.2 % (11.8-14.1); RDW-SD 41.6 fL; WBC 5.87 10^3/uL (4.4-10.8)
[2021-01-08 14:50] LABS: ALT 20 U/L (16-63); AST 24 U/L (15-37); Albumin 3.5 g/dL (3.4-5.0); Alkaline Phosphatase 108 U/L (46-116); Anion Gap 9.2 mmol/L (3-11); BUN 13 mg/dL (7-18); Bilirubin, Total 0.7 mg/dL (0.2-1.0); CO2 27.8 mmol/L (21.0-32.0); CREATININE 1.2 mg/dL (0.70-1.30); Chloride 103 mmol/L (98-107); Glucose 95 mg/dL (74-106); Potassium 3.7 mmol/L (3.5-5.1); Sodium 140 mmol/L (136-145); Total Protein 7.5 g/dL (6.4-8.2)
[2021-01-08 22:35] LABS: CEA 12.4 ng/mL (See Note)
== END 2021-01-08 03:15 | disposition home or self-care (01) ==
PROVIDERS: PCP Family Medicine; Visit Provider Internal Medicine Hematology & Oncology
DX: C18.2 Malignant neoplasm of ascending colon (principal)
CPT/HCPCS: 36415; 80053; 82378; 85025

== ENCOUNTER 2021-01-29 02:58 | Outpatient (CLI) | payer MEDICAID, SELFPAY ==
[2021-01-29 11:09] LABS: Abs Immature Grans 0.08 10^3/uL (0.0-0.06); Absolute Basophil Count 0.05 10^3/uL (0.0-0.2); Absolute Eosinophil Count 0.23 10^3/uL (0.0-0.7); Absolute Lymphocyte Count 0.88 10^3/uL (1.2-3.4); Absolute Monocyte Count 0.59 10^3/uL (0.1-0.8); Absolute Neutrophil Count 3.35 10^3/uL (1.2-6.7); Eosinophils % 4.4; HCT 41.9 % (40.0-50.0); HGB 14.1 g/dL (13.5-17.5); Immature Grans % 1.5; MCH 28.3 pg (27.0-33.0); MCHC 33.7 % (32.0-36.0); MCV 84.1 fL (80-95); MPV 8.4 fL (8.0-11.0); Monocytes % 11.4; Neutrophils % 64.7; Nucleated RBC 0 %; Platelet Count 157 10^3/uL (130-400); RBC 4.98 10^6/uL (4.36-5.78); RDW 20.9 % (11.8-14.1); RDW-SD 58.4 fL; WBC 5.18 10^3/uL (4.4-10.8)
[2021-01-29 11:21] LABS: ALT 20 U/L (16-63); AST 24 U/L (15-37); Albumin 3.5 g/dL (3.4-5.0); Alkaline Phosphatase 116 U/L (46-116); Anion Gap 9.2 mmol/L (3-11); BUN 15 mg/dL (7-18); Bilirubin, Total 1.1 mg/dL (0.2-1.0); CO2 26.8 mmol/L (21.0-32.0); CREATININE 1.2 mg/dL (0.70-1.30); Calcium 8.8 mg/dL (8.5-10.1); Chloride 104 mmol/L (98-107); Glucose 109 mg/dL (74-106); Potassium 3.7 mmol/L (3.5-5.1); Sodium 140 mmol/L (136-145); Total Protein 7.3 g/dL (6.4-8.2)
[2021-01-29 11:30] LABS: Anisocytosis 2+; Diff Comment Diff Reviewed; Polychromasia Present
[2021-01-29 21:57] LABS: CEA 11.4 ng/mL (See Note)
== END 2021-01-29 02:59 | disposition home or self-care (01) ==
LOC: LBO 02:58
PROVIDERS: PCP Family Medicine; Visit Provider Internal Medicine Hematology & Oncology
DX: C78.01 Secondary malignant neoplasm of right lung (principal); C20 Malignant neoplasm of rectum; C78.02 Secondary malignant neoplasm of left lung
CPT/HCPCS: 36415; 80053; 82378; 85025

== ENCOUNTER 2021-02-19 04:21 | Outpatient (CLI) | payer MEDICAID, SELFPAY ==
[2021-02-19 13:45] LABS: Abs Immature Grans 0.09 10^3/uL (0.0-0.06); Absolute Basophil Count 0.04 10^3/uL (0.0-0.2); Absolute Eosinophil Count 0.13 10^3/uL (0.0-0.7); Absolute Lymphocyte Count 0.92 10^3/uL (1.2-3.4); Absolute Monocyte Count 0.66 10^3/uL (0.1-0.8); Basophils % 0.8; Eosinophils % 2.5; HCT 41.6 % (40.0-50.0); Immature Grans % 1.7; Lymphocytes % 17.6; MCH 29.5 pg (27.0-33.0); MCHC 33.7 % (32.0-36.0); MCV 87.6 fL (80-95); MPV 8.1 fL (8.0-11.0); Monocytes % 12.6; Neutrophils % 64.8; Nucleated RBC 0 %; Platelet Count 156 10^3/uL (130-400); RBC 4.75 10^6/uL (4.36-5.78); RDW 22.5 % (11.8-14.1); RDW-SD 67.6 fL; WBC 5.24 10^3/uL (4.4-10.8)
[2021-02-19 13:58] LABS: ALT 18 U/L (16-63); AST 22 U/L (15-37); Albumin 3.6 g/dL (3.4-5.0); Alkaline Phosphatase 94 U/L (46-116); Anion Gap 8.1 mmol/L (3-11); BUN 12 mg/dL (7-18); Bilirubin, Total 1.4 mg/dL (0.2-1.0); CO2 25.9 mmol/L (21.0-32.0); CREATININE 1.3 mg/dL (0.70-1.30); Calcium 8.9 mg/dL (8.5-10.1); Chloride 103 mmol/L (98-107); Estimated GFR 55.75 (mL/min/1.73m2); Glucose 109 mg/dL (74-106); Potassium 3.6 mmol/L (3.5-5.1); Sodium 137 mmol/L (136-145); Total Protein 7.3 g/dL (6.4-8.2)
[2021-02-19 21:54] LABS: CEA 10.9 ng/mL (See Note)
== END 2021-02-19 04:22 | disposition home or self-care (01) ==
LOC: LBO 04:21
PROVIDERS: PCP Family Medicine; Visit Provider Internal Medicine Hematology & Oncology
DX: C18.2 Malignant neoplasm of ascending colon (principal)
CPT/HCPCS: 36415; 80053; 84153; 84403; 82378; 85025

== ENCOUNTER 2021-03-09 03:15 | Outpatient (CLI) | payer MEDICAID, SELFPAY ==
[2021-03-09 12:44] LABS: Abs Immature Grans 0.02 10^3/uL (0.0-0.06); Absolute Basophil Count 0.04 10^3/uL (0.0-0.2); Absolute Eosinophil Count 0.19 10^3/uL (0.0-0.7); Absolute Lymphocyte Count 0.63 10^3/uL (1.2-3.4); Absolute Monocyte Count 0.28 10^3/uL (0.1-0.8); Absolute Neutrophil Count 3.45 10^3/uL (1.2-6.7); Basophils % 0.9; Eosinophils % 4.1; HCT 38.3 % (40.0-50.0); HGB 12.9 g/dL (13.5-17.5); Immature Grans % 0.4; Lymphocytes % 13.7; MCHC 33.7 % (32.0-36.0); MCV 89.1 fL (80-95); MPV 8.8 fL (8.0-11.0); Monocytes % 6.1; Neutrophils % 74.8; Nucleated RBC 0 %; Platelet Count 141 10^3/uL (130-400); RDW 22.5 % (11.8-14.1); RDW-SD 70.8 fL; WBC 4.61 10^3/uL (4.4-10.8)
[2021-03-09 13:09] LABS: ALT 17 U/L (16-63); AST 28 U/L (15-37); Albumin 3.5 g/dL (3.4-5.0); Alkaline Phosphatase 102 U/L (46-116); Anion Gap 10.4 mmol/L (3-11); BUN 10 mg/dL (7-18); Bilirubin, Total 1.5 mg/dL (0.2-1.0); CO2 26.6 mmol/L (21.0-32.0); CREATININE 1.2 mg/dL (0.70-1.30); Calcium 8.4 mg/dL (8.5-10.1); Chloride 104 mmol/L (98-107); Glucose 186 mg/dL (74-106); Potassium 3.5 mmol/L (3.5-5.1); Sodium 141 mmol/L (136-145); Total Protein 6.5 g/dL (6.4-8.2)
[2021-03-09 22:30] LABS: CEA 10.6 ng/mL (See Note)
== END 2021-03-09 03:16 | disposition home or self-care (01) ==
LOC: LOS 03:15
PROVIDERS: Internal Medicine Hematology & Oncology; PCP Family Medicine; Visit Provider Family Medicine
DX: C18.2 Malignant neoplasm of ascending colon (principal)
CPT/HCPCS: 36415; 80053; 82378; 85025

== ENCOUNTER 2021-04-23 03:32 | Outpatient (CLI) | payer MEDICAID, SELFPAY ==
[2021-04-23 13:53] LABS: Abs Immature Grans 0.22 10^3/uL (0.0-0.06); Absolute Basophil Count 0.04 10^3/uL (0.0-0.2); Absolute Eosinophil Count 0.21 10^3/uL (0.0-0.7); Absolute Lymphocyte Count 0.75 10^3/uL (1.2-3.4); Absolute Monocyte Count 0.65 10^3/uL (0.1-0.8); Absolute Neutrophil Count 3.28 10^3/uL (1.2-6.7); Basophils % 0.8; Eosinophils % 4.1; HCT 36.7 % (40.0-50.0); HGB 12.4 g/dL (13.5-17.5); Immature Grans % 4.3; Lymphocytes % 14.6; MCHC 33.8 % (32.0-36.0); MCV 94.8 fL (80-95); MPV 8.3 fL (8.0-11.0); Monocytes % 12.6; Neutrophils % 63.6; Nucleated RBC 1 %; Platelet Count 144 10^3/uL (130-400); RBC 3.87 10^6/uL (4.36-5.78); RDW 19.7 % (11.8-14.1); WBC 5.15 10^3/uL (4.4-10.8)
[2021-04-23 14:06] LABS: ALT 17 U/L (16-63); AST 15 U/L (15-37); Albumin 3.6 g/dL (3.4-5.0); Alkaline Phosphatase 124 U/L (46-116); Anion Gap 8.9 mmol/L (3-11); BUN 14 mg/dL (7-18); Bilirubin, Total 1.4 mg/dL (0.2-1.0); CO2 27.1 mmol/L (21.0-32.0); CREATININE 1.2 mg/dL (0.70-1.30); Calcium 9.4 mg/dL (8.5-10.1); Chloride 104 mmol/L (98-107); Glucose 115 mg/dL (74-106); Potassium 3.9 mmol/L (3.5-5.1); Sodium 140 mmol/L (136-145)
[2021-04-23 22:13] LABS: CEA 11.1 ng/mL (See Note)
== END 2021-04-23 03:33 | disposition home or self-care (01) ==
LOC: LBO 03:32
PROVIDERS: PCP Family Medicine; Visit Provider Internal Medicine Hematology & Oncology
DX: C18.2 Malignant neoplasm of ascending colon (principal)
CPT/HCPCS: 36415; 80053; 82378; 85025

== ENCOUNTER 2021-05-14 01:47 | Outpatient (CLI) | payer MEDICAID, SELFPAY ==
[2021-05-14 10:14] LABS: Abs Immature Grans 0.06 10^3/uL (0.0-0.06); Absolute Basophil Count 0.03 10^3/uL (0.0-0.2); Absolute Eosinophil Count 0.14 10^3/uL (0.0-0.7); Absolute Lymphocyte Count 0.68 10^3/uL (1.2-3.4); Absolute Monocyte Count 0.55 10^3/uL (0.1-0.8); Absolute Neutrophil Count 3.65 10^3/uL (1.2-6.7); Basophils % 0.6; Eosinophils % 2.7; HGB 12.6 g/dL (13.5-17.5); Immature Grans % 1.2; Lymphocytes % 13.3; MCH 32.9 pg (27.0-33.0); MCHC 34.1 % (32.0-36.0); MCV 96.6 fL (80-95); MPV 8.9 fL (8.0-11.0); Monocytes % 10.8; Neutrophils % 71.4; Nucleated RBC 0 %; Platelet Count 161 10^3/uL (130-400); RBC 3.83 10^6/uL (4.36-5.78); RDW 19.2 % (11.8-14.1); RDW-SD 67.4 fL; WBC 5.11 10^3/uL (4.4-10.8)
[2021-05-14 10:38] LABS: ALT 19 U/L (16-63); AST 20 U/L (15-37); Albumin 3.3 g/dL (3.4-5.0); Alkaline Phosphatase 107 U/L (46-116); Anion Gap 9.6 mmol/L (3-11); BUN 12 mg/dL (7-18); Bilirubin, Total 1.5 mg/dL (0.2-1.0); CO2 25.4 mmol/L (21.0-32.0); CREATININE 1.2 mg/dL (0.70-1.30); Calcium 8.5 mg/dL (8.5-10.1); Chloride 104 mmol/L (98-107); Glucose 125 mg/dL (74-106); Potassium 3.7 mmol/L (3.5-5.1); Sodium 139 mmol/L (136-145); Total Protein 6.7 g/dL (6.4-8.2)
[2021-05-14 21:50] LABS: CEA 8.8 ng/mL (See Note)
== END 2021-05-14 01:48 | disposition home or self-care (01) ==
LOC: LBO 01:47
PROVIDERS: PCP Family Medicine; Visit Provider Internal Medicine Hematology & Oncology
DX: C18.2 Malignant neoplasm of ascending colon (principal)
CPT/HCPCS: 36415; 80053; 82378; 85025

== ENCOUNTER 2021-05-28 03:29 | Outpatient (CLI) | payer MEDICAID, SELFPAY ==
[2021-05-28 10:44] LABS: Abs Immature Grans 0.02 10^3/uL (0.0-0.06); Absolute Basophil Count 0.04 10^3/uL (0.0-0.2); Absolute Eosinophil Count 0.27 10^3/uL (0.0-0.7); Absolute Monocyte Count 0.53 10^3/uL (0.1-0.8); Absolute Neutrophil Count 3.52 10^3/uL (1.2-6.7); Basophils % 0.8; Eosinophils % 5.3; HCT 40.1 % (40.0-50.0); HGB 13.2 g/dL (13.5-17.5); Immature Grans % 0.4; Lymphocytes % 13.8; MCH 31.4 pg (27.0-33.0); MCHC 32.9 % (32.0-36.0); MCV 95.2 fL (80-95); MPV 8.7 fL (8.0-11.0); Monocytes % 10.4; Neutrophils % 69.3; Nucleated RBC 0 %; Platelet Count 137 10^3/uL (130-400); RBC 4.21 10^6/uL (4.36-5.78); RDW-SD 53.1 fL; WBC 5.08 10^3/uL (4.4-10.8)
[2021-05-28 10:57] LABS: ALT 18 U/L (16-63); AST 18 U/L (15-37); Albumin 3.3 g/dL (3.4-5.0); Alkaline Phosphatase 122 U/L (46-116); Anion Gap 3.6 mmol/L (3-11); BUN 14 mg/dL (7-18); Bilirubin, Total 1.1 mg/dL (0.2-1.0); CO2 30.4 mmol/L (21.0-32.0); CREATININE 1.2 mg/dL (0.70-1.30); Calcium 8.5 mg/dL (8.5-10.1); Chloride 104 mmol/L (98-107); Glucose 142 mg/dL (74-106); Potassium 3.6 mmol/L (3.5-5.1); Sodium 138 mmol/L (136-145); Total Protein 7.1 g/dL (6.4-8.2)
[2021-05-28 19:42] LABS: CEA 9.2 ng/mL (See Note)
== END 2021-05-28 03:30 | disposition home or self-care (01) ==
LOC: LBO 03:29
PROVIDERS: PCP Family Medicine; Visit Provider Internal Medicine Hematology & Oncology
DX: C18.2 Malignant neoplasm of ascending colon (principal)
CPT/HCPCS: 36415; 80053; 82378; 85025

== ENCOUNTER 2021-07-02 12:45 | Outpatient (CLI) | payer MEDICAID, SELFPAY ==
[2021-07-02 13:43] LABS: Abs Immature Grans 0.01 10^3/uL (0.0-0.06); Absolute Basophil Count 0.04 10^3/uL (0.0-0.2); Absolute Eosinophil Count 0.26 10^3/uL (0.0-0.7); Absolute Lymphocyte Count 0.85 10^3/uL (1.2-3.4); Absolute Monocyte Count 0.45 10^3/uL (0.1-0.8); Basophils % 0.8; Eosinophils % 5.2; HCT 43.6 % (40.0-50.0); HGB 14.2 g/dL (13.5-17.5); Immature Grans % 0.2; MCH 27.8 pg (27.0-33.0); MCHC 32.6 % (32.0-36.0); MCV 85.5 fL (80-95); MPV 8.6 fL (8.0-11.0); Neutrophils % 67.8; Nucleated RBC 0 %; Platelet Count 194 10^3/uL (130-400); RDW 13.5 % (11.8-14.1); WBC 5.01 10^3/uL (4.4-10.8)
[2021-07-02 14:00] LABS: Albumin 3.4 g/dL (3.4-5.0); Alkaline Phosphatase 106 U/L (46-116); BUN 11 mg/dL (7-18); Bilirubin, Total 0.8 mg/dL (0.2-1.0); CREATININE 1.1 mg/dL (0.70-1.30); Calcium 8.9 mg/dL (8.5-10.1); Glucose 53 mg/dL (74-106); Potassium 3.5 mmol/L (3.5-5.1); Sodium 140 mmol/L (136-145); Total Protein 7.4 g/dL (6.4-8.2)
[2021-07-02 14:01] LABS: ALT 22 U/L (16-63); AST 23 U/L (15-37); Anion Gap 7.7 mmol/L (3-11); CO2 28.3 mmol/L (21.0-32.0); Chloride 104 mmol/L (98-107)
[2021-07-02 14:48] LABS: Hemoglobin A1C 5.5 % (<5.7)
== END 2021-07-02 12:46 | disposition home or self-care (01) ==
LOC: LBO 12:46
PROVIDERS: PCP Family Medicine; Visit Provider Internal Medicine Hematology & Oncology
DX: C18.2 Malignant neoplasm of ascending colon (principal); E11.9 Type 2 diabetes mellitus without complications
CPT/HCPCS: 36415; 80053; 82378; 83036; 85025

== ENCOUNTER 2021-10-15 15:54 | Outpatient (CLI) | payer MEDICAID, SELFPAY ==
[2021-10-15 12:50] LABS: Abs Immature Grans 0.01 10^3/uL (0.0-0.06); Absolute Basophil Count 0.06 10^3/uL (0.0-0.2); Absolute Eosinophil Count 0.31 10^3/uL (0.0-0.7); Absolute Lymphocyte Count 0.82 10^3/uL (1.2-3.4); Absolute Monocyte Count 0.44 10^3/uL (0.1-0.8); Eosinophils % 5.4; HCT 42.8 % (40.0-50.0); HGB 13.6 g/dL (13.5-17.5); Immature Grans % 0.2; Lymphocytes % 14.3; MCHC 31.8 % (32.0-36.0); MCV 81.7 fL (80-95); MPV 8.4 fL (8.0-11.0); Monocytes % 7.7; Neutrophils % 71.4; Nucleated RBC 0 %; Platelet Count 201 10^3/uL (130-400); RBC 5.24 10^6/uL (4.36-5.78); RDW 15.8 % (11.8-14.1); RDW-SD 46.7 fL; WBC 5.74 10^3/uL (4.4-10.8)
[2021-10-15 13:04] LABS: ALT 22 U/L (16-63); AST 25 U/L (15-37); Albumin 3.2 g/dL (3.4-5.0); Alkaline Phosphatase 116 U/L (46-116); Anion Gap 7.9 mmol/L (3-11); BUN 14 mg/dL (7-18); Bilirubin, Total 0.6 mg/dL (0.2-1.0); CO2 27.1 mmol/L (21.0-32.0); CREATININE 1.2 mg/dL (0.70-1.30); Calcium 8.8 mg/dL (8.5-10.1); Chloride 102 mmol/L (98-107); Glucose 130 mg/dL (74-106); Potassium 4.2 mmol/L (3.5-5.1); Sodium 137 mmol/L (136-145); Total Protein 7.5 g/dL (6.4-8.2)
[2021-10-15 13:22] LABS: Hemoglobin A1C 6.3 % (<5.7)
[2021-10-15 22:53] LABS: CEA 14.5 ng/mL (See Note)
== END 2021-10-15 15:55 | disposition home or self-care (01) ==
LOC: LBO 15:55
PROVIDERS: PCP Family Medicine; Visit Provider Internal Medicine Hematology & Oncology
DX: E11.9 Type 2 diabetes mellitus without complications (principal); C18.2 Malignant neoplasm of ascending colon
CPT/HCPCS: 36415; 80053; 82378; 83036; 85025

== ENCOUNTER 2021-12-10 02:37 | Outpatient (CLI) | payer MEDICAID, SELFPAY ==
[2021-12-10 12:07] LABS: Abs Immature Grans 0.02 10^3/uL (0.0-0.06); Absolute Basophil Count 0.05 10^3/uL (0.0-0.2); Absolute Lymphocyte Count 0.87 10^3/uL (1.2-3.4); Absolute Neutrophil Count 3.62 10^3/uL (1.2-6.7); Eosinophils % 3.8; HCT 42.1 % (40.0-50.0); HGB 13.8 g/dL (13.5-17.5); Immature Grans % 0.4; Lymphocytes % 16.5; MCH 26.6 pg (27.0-33.0); MCHC 32.8 % (32.0-36.0); MCV 81.3 fL (80-95); MPV 8.4 fL (8.0-11.0); Monocytes % 9.5; Neutrophils % 68.8; Platelet Count 220 10^3/uL (130-400); RBC 5.18 10^6/uL (4.36-5.78); RDW-SD 43.9 fL; WBC 5.26 10^3/uL (4.4-10.8)
[2021-12-10 12:25] LABS: ALT 28 U/L (16-63); AST 29 U/L (15-37); Albumin 3.4 g/dL (3.4-5.0); Alkaline Phosphatase 129 U/L (46-116); Anion Gap 5.8 mmol/L (3-11); BUN 15 mg/dL (7-18); Bilirubin, Total 0.7 mg/dL (0.2-1.0); CO2 28.2 mmol/L (21.0-32.0); CREATININE 1.3 mg/dL (0.70-1.30); Calcium 9.1 mg/dL (8.5-10.1); Chloride 101 mmol/L (98-107); Estimated GFR 55.58 (mL/min/1.73m2); Glucose 165 mg/dL (74-106); Sodium 135 mmol/L (136-145); Total Protein 7.8 g/dL (6.4-8.2)
[2021-12-10 22:51] LABS: CEA 26.8 ng/mL (See Note)
== END 2021-12-10 02:38 | disposition home or self-care (01) ==
LOC: LBO 02:37
PROVIDERS: PCP Family Medicine; Visit Provider Internal Medicine Hematology & Oncology
DX: C18.2 Malignant neoplasm of ascending colon (principal)
CPT/HCPCS: 36415; 80053; 82378; 85025

== ENCOUNTER → 2022-01-11 17:41 | Outpatient (CLI) | payer MEDICAID, SELFPAY ==
--- NOTE | 2022-01-11 17:45 | DI.RAD_ITS ---
Exam(s) XR CHEST 2V PA LATERAL EXAM: XR CHEST 2V PA LATERAL CLINICAL HISTORY: cough TECHNIQUE: COMPARISON: CR XR CHEST 2V PA LATERAL from 10/02/2020 FINDINGS: The heart is not enlarged. Note is again made of multiple large known pulmonary metastatic lesions, these of increase in size and number in comparison with prior examination of October 02. Note is also made of superimposed multi focal patchy consolidative radiodensities, many of these also have a nodular appearance. Diagnostic considerations would include acute pneumonia versus lymphangi tic spread of metastatic disease and/or additional smaller numerous metastatic lesions. Chest CT may be considered for further evaluation if there is diagnostic uncertainty in this patient. IMPRESSION: RADIATION DOSE DELIVERED: Total DLP
== END ==
PROVIDERS: PCP Family Medicine; Visit Provider Physician Assistant
DX: R05.8 Other specified cough (principal); C78.01 Secondary malignant neoplasm of right lung; C78.02 Secondary malignant neoplasm of left lung
CPT/HCPCS: 71046

== ENCOUNTER 2022-01-11 17:46 | Outpatient (REF) | payer MEDICAID, SELFPAY ==
--- NOTE | 2022-01-11 18:32 | DI.VRAD_ITS ---
Addendum created by Christiano Hernandez DO on 01/11/2022 6:47:26 PM EDT: THIS REPORT CONTAINS FINDINGS THAT MAY BE CRITICAL TO PATIENT CARE. The findings were verbally communicated via telephone conference at 6:47 PM EDT on 01/11/2022 with Asha EASON The findings were acknowledged and understood. Initial report created on 01/11/2022 6:32:10 PM EDT: PROCEDURE INFORMATION: Exam: XR Chest Exam date and time: 01/11/2022 6:06 PM Age: 66 years old Clinical indication: Other: Cough TECHNIQUE: Imaging protocol: XR of the chest. Views: 2 views. COMPARISON: CR XR CHEST 2V PA LATERAL 10/02/2020 1:48 PM FINDINGS: Lungs: Multiple bilateral pulmonary masses are again noted. These have increased in size and number since the prior study and are consistent with the patient's history of metastatic changes. Patchy airspace opacities are present throughout both lungs. Initial presentation of pulmonary consolidation consistent with pneumonia. Pleural spaces: Left pleural effusion. There is no evidence of pneumothorax. Heart/Mediastinum: Unremarkable. No cardiomegaly. Bones/joints: Unremarkable. IMPRESSION: 1. Multiple bilateral pulmonary masses are again noted. These have increased in size and number since the prior study and are consistent with the patient's history of metastatic changes. 2. Patchy airspace opacities are present throughout both lungs. Initial presentation of pulmonary consolidation consistent with pneumonia. 3. Left pleural effusion. Dictated and Authenticated by: Christiano Hernandez MD. Ordering:KITTY Barry MD
[2022-01-13 11:21] LABS: COVID-19 RT-PCR UVMMC Result Negative (Negative)
== END 2022-01-11 17:47 | disposition home or self-care (01) ==
LOC: LBN 17:46
PROVIDERS: Visit Provider Physician Assistant
DX: Z20.822 Contact with and (suspected) exposure to COVID-19 (principal); R05.8 Other specified cough
CPT/HCPCS: U0003

== ENCOUNTER 2022-02-19 03:01 | Outpatient (CLI) | payer MEDICAID, SELFPAY ==
[2022-02-19 15:02] LABS: HGB 13.7 g/dL (13.5-17.5); MCH 26.6 pg (27.0-33.0); MCHC 32.6 % (32.0-36.0); MCV 81 fL (80-95); MPV 8.1 fL (8.0-11.0); Platelet Count 198 10^3/uL (130-400); RBC 5.16 10^6/uL (4.36-5.78); RDW 15.3 % (11.8-14.1); RDW-SD 44.8 fL; WBC 5.25 10^3/uL (4.4-10.8)
[2022-02-19 16:32] LABS: ALT 39 U/L (16-63); AST 29 U/L (15-37); Albumin 3.1 g/dL (3.4-5.0); Alkaline Phosphatase 109 U/L (46-116); Anion Gap 6.9 mmol/L (3-11); BUN 17 mg/dL (7-18); Bilirubin, Total 0.4 mg/dL (0.2-1.0); CO2 27.1 mmol/L (21.0-32.0); CREATININE 1.2 mg/dL (0.70-1.30); Calcium 9.5 mg/dL (8.5-10.1); Chloride 101 mmol/L (98-107); Glucose 160 mg/dL (74-106); Potassium 4.1 mmol/L (3.5-5.1); Sodium 135 mmol/L (136-145); Total Protein 7.8 g/dL (6.4-8.2)
== END 2022-02-19 03:02 | disposition home or self-care (01) ==
LOC: LBO 03:01
PROVIDERS: PCP Family Medicine; Visit Provider Family Medicine
DX: E11.9 Type 2 diabetes mellitus without complications (principal); C18.9 Malignant neoplasm of colon, unspecified; C77.2 Secondary and unspecified malignant neoplasm of intra-abdominal lymph nodes; D64.9 Anemia, unspecified
CPT/HCPCS: 36415; 80053; 85027; 83036

== ENCOUNTER 2022-03-17 16:44 | Inpatient (IN) | payer OTHER, SELFPAY ==
--- NOTE | 2022-03-17 16:47 | W.PM.HP.N ---
Date of service: 03/17/22 Time of Service: 16:47 Assessment and Plan Assessment and plan (1) Hospice care patient: Status: Acute Assessment and plan: Admitted for hospice symptom management. Respiratory distress and clinical signs of pneumonia in pt with multiple pulmonary mets. He stated he wants antibiotics. Sisters support his decision. Took a z pack about 2 months ago. Advised family that Dr Razo will be sent this note. (2) Respiratory distress: Status: Acute Assessment and plan: On higher oxygen flow. On levaquin as of tonight. Has duonebs and albuterol ordered. Has morphine and lorazepam for symptom control. (3) Pneumonia: Status: Acute Assessment and plan: Presumed, based on clinical presentation. Increase in temperature and new notable cough most supportive of this diagnosis. (4) Pedal edema: Status: Acute Assessment and plan: Will not treat unless painful. Do not want to dehydrate him in setting of acute infection. (5) Metastasis from colon cancer: Status: Acute Assessment and plan: Significant pulmonary mets burden bilateral lungs. Other mets noted as well. Reason for his hospice admission. History of Present Illness History of Present Illness Chief Complaint: respiratory distress, colon ca with mets to lung Narrative: Xavi is a 66 yo man on hospice with schizophrenia and metastatic colon cancer. He has known lung and suspected bone mets. He developed new moderate dyspnea over the previous 48 hrs. I saw him at home earlier on the day of admission and left him and his family with the option of being admitted if his symptoms were not under adequate control with the medication changes I suggested. He has been tachypneic. He doesn't have much of a cough; he was afebrile. He describes pain in his scapula and sternum. (Suspected met sites). He has had bilateral pedal edema (new x 48 hrs). He received 60 mg of lasix today; I increased his oxygen flow from 3 to 4 L/min; I advised the family to give him 5 mg of liquid morphine q 15-30 minutes until he was comfortable and lorazepam tablets 1 mg q 1-2hrs. His oxygen sat increased from 88 to 94 with these changes. His lung exam was notable for decreased air movement in inferior lobe on left; no crackles. His family tried keeping him comfortable at home. They were unable to do so. Family (his dpoa/sister who lives next door) asked that he be admitted for further treatment. She doesn't feel she is capable of keeping his symptoms under control. Review of Systems Narrative: Since I saw Xavi earlier today, he has developed more of a cough. He has a new low-grade fever of 100.4. (Was 97.6 at home). He is satting 93-94 % at 4L/min. He is tired. He looks exhausted. He wants to sleep but cannot. He says he's only been sleeping about 4-5 hrs per night for several nights. He finally urinated a normal amount 4 hrs after he took his lasix orally (ordered for 20 mg but he was given 60 mg by his cousin, an ER doc). He did not agree to take the morphine and lorazepam as I suggested. He took only one further dose of each after I left his home. He is sore in his scapulae. He is working hard to breathe. His feet are both swollen. His abdominal hernia appears prominent. He doesn't like to come to the hospital. He agreed to do so tonight. His sisters felt overwhelmed caring for him. PFSH All Active Problems (Updated 03/17/22 @ 17:34 by Kimberly Steven MD) Pneumonia (Acute) suspected based on fever, resp distress, crackles Pedal edema (Acute) Respiratory distress (Acute) Hospice care patient (Acute) Weight loss (Acute) Vaccination hesitancy by patient (Acute) Physician orders for life-sustaining treatment (POLST) form indicates patient wish for xp-ard-vrglttnpije status (Acute) DNR (do not resuscitate) (Acute) Metastasis from colon cancer (Acute) left nasal lesion and pulmonary mets Skin lesion (Acute) Ganglion, left wrist (Acute) Vitamin D deficiency (Chronic 07/07/15) Pulmonary nodules (Chronic 03/21/17) [facility] [place]; DR. MUNOZ; RESSECTION IS RECCOMENDED,HOWEVER PATIENT HAS DECLINED-per [facility]OR Obesity (Chronic) Nuclear sclerosis (Chronic 08/30/13) 08/29/13 [facility]; O.U. 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 resolved in the last year Obesity (Chronic) GERD (gastroesophageal reflux disease) (Chronic) type 2 diabetes with poor control (Chronic) Hyperlipidemia (Chronic) a. 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 Brandon Tubular adenoma Surgical History H/O surgical procedure 12/03/14 revision of end ileostomy Hemicolectomy RIGHT History of surgical procedure (12/03/14) REVISION OF END ILEOSTOMY SIGMOID COLECTOMY (11/12/14) Family History Maternal Cousin Factor 5 Leiden mutation, heterozygous Social History Smoking/Tobacco Use Status: Former Tobacco Use tobacco type: cigarettes Second Hand Exposure: Yes Smoking risk assessment performed?: Yes Alcohol Intake: former Drug use: Never Caregiver/Support person: No Household members: none Housing: house Communication Needs: None Do you need help understanding health information?: Rarely Pets and animals: No Sexually active: No Do you think of yourself as: straight/heterosexual Current gender identity: male What is your relationship status?: never How often do you talk on the phone with friends or family?: three or more times per week How often do you get together with friends or relatives?: twice per week Do you belong to any clubs or organized social groups?: no Panel score (0-1 are the most socially isolated patients): 1 What type of physical activity do you participate in: walking Duration: < 15 minutes/day Meds Allergies and Home Medications Allergies Allergy/AdvReac Type Severity Reaction Status Date / Time No Known Allergies Allergy Verified 01/11/22 16:44 Home Medications Medication Instructions Recorded Confirmed Type acetaminophen 325 mg tablet 650 mg PO PRN PRN 12/11/14 02/23/22 History (Tylenol) diphenoxylate-atropine 2.5 0.5 - 2 tab PO QID PRN 05/09/15 02/23/22 History mg-0.025 mg tablet nystatin (bulk) 500 million unit 0 topical DAILY #60 grams 06/16/15 02/23/22 History powder triamcinolone acetonide 0.1 % 2 gm topical BID #80 grams 08/05/15 02/23/22 History topical ointment aspirin 500 mg-sod bicarb 1,985 1 - 2 tab PO DAILY PRN 07/03/19 02/23/22 History mg-citric acid 1,000 mg efferv tablet (Jovana-[place] Extra Strength) needle (disp) 25 gauge 25 gauge x #540 ea 11/18/20 02/23/22 Rx 7/8 (BD Specialty Use Ol[place]o) ergocalciferol (vitamin D2) 1,250 1,250 mcg PO QMONTH #3 tab-caps 03/09/21 02/23/22 Rx mcg (50,000 unit) capsule (Vitamin D2) fluorouracil 5 % topical cream 1 applic topical BID 2 weeks #40 11/24/21 02/23/22 Rx grams lancets 28 gauge (FreeStyle #400 ea 11/24/21 02/23/22 Rx Lancets) liraglutide 0.6 mg/0.1 mL (18 mg/3 1.8 mg (0.3 mL) subcut DAILY #90 mL 11/24/21 02/23/22 Rx mL) subcutaneous pen injector (Victoza 3-Chung) melatonin 3 mg tablet 3 mg PO HS PRN sleep #90 tabs 11/24/21 02/23/22 Rx pantoprazole 40 mg tablet,delayed 40 mg PO DAILY #90 tab-caps 11/24/21 02/23/22 Rx release blood sugar diagnostic (FreeStyle #400 strips 01/11/22 02/23/22 Rx Lite Strips) bisacodyl 10 mg rectal suppository 10 mg WA DAILY PRN 02/23/22 History (Dulcolax (bisacodyl)) bismuth subsalicylate 262 mg/15 mL 262 mg PO Q6H PRN PRN 02/23/22 History oral suspension (Pepto-Bismol) dicyclomine 10 mg capsule 10 mg PO QID PRN 02/23/22 History diphenoxylate-atropine 2.5 0.5 tab PO QID PRN 02/23/22 History mg-0.025 mg tablet (Lomotil) gabapentin 100 mg capsule 200 mg PO TID 02/23/22 02/23/22 History haloperidol lactate 2 mg/mL oral 0.5 mg PO Q6H PRN 02/23/22 History concentrate hyoscyamine sulfate 0.125 mg/mL 1 ml PO Q4H PRN 02/23/22 History oral drops insulin aspart U-100 100 unit/mL 20 unit (0.2 mL) subcut as 02/23/22 Rx (3 mL) subcutaneous pen (Novolog directed #75 mL Flexpen U-100 Insulin aspart) insulin detemir U-100 100 unit/mL 50 unit (0.5 mL) subcut DAILY #75 02/23/22 Rx (3 mL) subcutaneous pen (Levemir mL FlexTouch U-100 Insulin) lorazepam 1 mg tablet (Ativan) 1 mg PO Q4H PRN PRN 02/23/22 History morphine 20 mg/5 mL (4 mg/mL) oral 2.5 mg PO Q4H PRN 02/23/22 History solution oxycodone 5 mg tablet 5 mg PO Q4H PRN 02/23/22 History prochlorperazine maleate 10 mg 10 mg PO Q6H PRN 02/23/22 History tablet sodium phosphates 19 gram-7 118 ml WA DAILY PRN 02/23/22 History gram/118 mL enema (Fleet Enema) vitamin B complex 1 tab PO TID 02/23/22 02/23/22 History Allergy/Medication Comments:: Xavi reported he was only taking his gabapentin and vitamin D. He showed me his medication boxes and only 2 different meds were in them. Exam Narrative Exam Narrative: Chronically ill man with dark shadows under both eyes, muscular atrophy of his limbs, prominent abdominal hernia, in mild to moderate respiratory distress. Eyes: anicteric HEENT: MM dry but not parched, no rhinnorhea Neck: No LAD Lungs: crackles (new since late am) RLL, still with reduced BS LLL, increased WOB. Using accessory muscles. Heart: regular high normal rate Abd: prominent abdominal hernia, ileostomy right lower quadrant, bandage covering fistula on left lower quadrant, + bs, scant amount stool in bag ext: pedal edema bilateral, no blistering, no skin breakdown neuro: oriented to self and place, knows his sisters, a bit confused re: his medication list, sisters clarified psych: not agitated, looking more exhausted than anxious once settled in hospital bed (looked anxious at home) skin: no rashes
[2022-03-17 16:51] VITALS: BP 107/67; PULSE 107; RESP 28; TEMP 38; O2SAT 92
[2022-03-17 17:10] LABS: Source Nasal/Nares
[2022-03-17 17:17] VITALS: BP 107/67; PULSE 104; RESP 28; TEMP 38; O2SAT 93
[2022-03-17 18:02] LABS: COVID-19 PCR Negative (Negative)
[2022-03-17] MEDS: levoFLOXacin 500 MG, levoFLOXacin 250 MG 750 MG PO (18:14)
[2022-03-17] MEDS: Insulin Aspart 300 UNITS/3 ML PEN 20 UNITS SC (18:14)
[2022-03-17] MEDS: Acetaminophen 500 MG TAB PO (19:58)
[2022-03-17] MEDS: LORazepam 1 MG TAB PO (19:58)
[2022-03-17] MEDS: Melatonin 3 MG TAB PO (19:58)
[2022-03-17] MEDS: Gabapentin 100 MG CAP 200 MG PO (19:58)
[2022-03-18 07:25] VITALS: BP 121/87; PULSE 91; RESP 22; TEMP 37.2; O2SAT 93
[2022-03-18] MEDS: Gabapentin 100 MG CAP 200 MG PO ×3 (07:56→19:26)
--- NOTE | 2022-03-18 10:49 | PDOC.CMPRO ---
- If Service Date Differs Date of service: 03/18/22 Time of Service: 10:49 Care Management Progress Note S/O: Xavi was sitting on the side of his bed when CM met with him. CM assisted Xavi in finding a Western on TV and poured him a glass of orange juice located in his comfort cart at his request. Xavi is currently 90% on 5 L NC. He is also on abx for suspected pneumonia with resp. distress. His pain and anxiety are also being managed. CM spoke with Dr. Steven, who anticipates Xavi will remain at [facility] for symptom management until Tuesday, then discharge back home on Hospice when symptoms become more manageable. A: 66 year old male admitted to [facility] on 03/17/22 on hospice for symptom management. P: Hospice pt. Xavi is admitted to [facility] for symptom management. Anticipate, Xavi will discharge home via EMS on Tuesday or when his sx can be effectively managed at home. CM will arrange transportation and will continue to support Xavi during this difficult time.
[2022-03-18 13:53] VITALS: PULSE 120; RESP 14; RESP 19; RESP 36; RESP 4; RESP 5; RESP 8; O2SAT 90
[2022-03-18] MEDS: Albuterol/Ipratropium 3 ML UPD VIAL UPD (13:53)
[2022-03-18] MEDS: Promethazine 25 MG TAB PO (13:59)
[2022-03-18] MEDS: LORazepam 1 MG TAB PO ×2 (15:35→21:06)
[2022-03-18] MEDS: Insulin Aspart 300 UNITS/3 ML PEN 20 UNITS SC (16:47)
--- NOTE | 2022-03-18 17:09 | W.PM.PROGNOT ---
Date of Service Date of service: 03/18/22 Time of Service: 14:15 Assessment and Plan Assessment and plan (1) Pedal edema: Status: Acute Assessment and plan: Xavi is convinced still that morphine caused his foot swelling. Due to his schizophrenia, hard to convince otherwise. IF/when he needs morphone more regularly, would suggest he go on a pump. (2) Pneumonia: Status: Acute Assessment and plan: Second bout this summer. FIrst round treated with zpack. Now on ORAL levaquin 750 mg daily for total of 5 doses. could be obstructive due to his multiple pulmonary nodules, could be cap (3) Respiratory distress: Status: Acute Assessment and plan: improved since yesterday still not able to walk across the room to the toilet without losing his breath not sure if this will be correctable will need to go to SNF from inpatient stay (4) Hospice care patient: Status: Acute Assessment and plan: on symptom management likely will stay through the weekend TBD (5) Metastasis from colon cancer: Status: Acute Assessment and plan: has primarily pulmonary mets innumerable (6) Unintentional weight loss: Status: Acute Assessment and plan: Sisters report he's lost about 50 lbs over the last year, maybe more (7) Weakness: Status: Acute Assessment and plan: Not able to care for himself due to weakness and dyspnea. (8) Dyspnea: Status: Acute Subjective Subjective Patient reports: feels better, shortness of breath and afebrile Interval history since last seen: Xavi was sitting at the side of his bed. He was not tachypneic. He was coughing and wheezing. He said he couldn't walk across the room without losing his breath. His sisters had been in previously, but had to leave before I arrived. I spoke to his sister Tori who lives next door to him and is his DPOA after my visit. She doesn't feel she can take him home. He is getting sicker and weaker and more dependent for help with ADLs. She doesn't feel that she can provide Xavi with personal care. She would like him to go from [facility] to the [facility]. He has Medicaid, and is eligible for a 30 day stay. I suspect that Xavi will within that time frame. Exam Narrative Exam Narrative: Chronically ill man with dark shadows under both eyes, muscular atrophy of his limbs, prominent abdominal hernia, in mild respiratory distress. Eyes: anicteric HEENT: MM dry but not parched, no nasal discharge, no severe hearing loss Neck: No LAD Lungs: crackles RLL, wheeze throughout, still with reduced BS LLL, NO OBVIOUS increased WOB today. Not using accessory muscles. Heart: regular normal rate Abd: prominent abdominal hernia, ileostomy right lower quadrant, bandage covering fistula on left lower quadrant, + bs, scant amount stool in bag ext: pedal edema bilateral, no blistering, no skin breakdown neuro: oriented to self and place, able to converse as he is not in respiratory distress today. Understands and accepts plan to stay for antibiotic treatment and symptom management for the next few days. psych: not agitated, looking more exhausted than anxious. Said he slept relatively well last night, but still very tired. Happy to be at this hospital. skin: no rashes Objective Last Vital Signs Temp 99.0 F 03/18/22 07:25 Pulse 120 H 03/18/22 13:53 Resp 36 H 03/18/22 13:53 BP 121/87 03/18/22 07:25 Pulse Ox 90 L 03/18/22 13:53 Laboratory Results - last 24 hr 03/17/22 16:55 COVID-19 Source Nasal/Nares SARS-CoV-2 (PCR) Negative
[2022-03-18] MEDS: levoFLOXacin 500 MG, levoFLOXacin 250 MG 750 MG PO (17:35)
[2022-03-18] MEDS: Acetaminophen 500 MG TAB PO (19:26)
[2022-03-18] MEDS: Senna TAB PO (19:26)
[2022-03-18] MEDS: Melatonin 3 MG TAB PO (19:27)
[2022-03-19 07:44] VITALS: BP 121/75; PULSE 103; RESP 24; TEMP 37.7; O2SAT 93
[2022-03-19] MEDS: Gabapentin 100 MG CAP 200 MG PO ×3 (08:07→20:02)
--- NOTE | 2022-03-19 12:43 | W.PM.PROGNOT ---
Date of Service Date of service: 03/19/22 Time of Service: 12:00 Assessment and Plan Assessment and plan (1) Dyspnea: Status: Acute Assessment and plan: due to his lung mets, and his recent pneumonia improving though not yet back to baseline continue abx, continue higher flow oxygen (2) Weakness: Status: Acute Assessment and plan: chronic, not able to improve due to terminal status (3) Respiratory distress: Status: Acute Assessment and plan: Coughing but rarely, compared to admission on higher flow oxygen afebrile since 24 hrs post abx initiation (4) Pneumonia: Status: Acute Assessment and plan: continue levaquin higher flow oxygen encourage activity as tolerated (5) Hospice care patient: Status: Acute Assessment and plan: remains on symptom management family clear that they cannot bring him home working on admission to [facility] for Thursday 03/22 He has community medicaid, but not [employer] (application is in process) (6) Diabetes: Status: Chronic Assessment and plan: We are checking his BS. They are running higher than usual. Not on Victoza as inpatient. Mayneed to restart when he gets home. 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 Subjective Subjective Patient reports: feels better (but still short of breath, on higher oxygen rate ), shortness of breath and other (having epigastric pain and irritation) Interval history since last seen: Multiple calls throughout the day to [facility], [facility], family, etc to help arrange next steps for Xavi upon discharge. Exam Narrative Exam Narrative: Chronically ill man with dark shadows under both eyes, muscular atrophy of his limbs, prominent abdominal hernia, in mild to moderate respiratory distress. Eyes: anicteric, no ocular discharge HEENT: MMM, no nasal discharge, no severe hearing loss Neck: No LAD Lungs: Still using accessory muscles.Cannot lie back in bed due to dsypnea. Lungs with rare scatterred crackles. Still with wheeze per ausculation, though not audible clinically.. Heart: regular normal rate Abd: prominent abdominal hernia, ileostomy right lower quadrant, bandage covering fistula on left lower quadrant, + bs, soft ext: reduced pedal edema bilateral, no blistering, no skin breakdown neuro: oriented to self and place. Understands and accepts plan to stay for antibiotic treatment and symptom management. Working on plan to transfer to [facility] on morning of Thursday 03/22. psych: not agitated, has flat affect, per his usual. Objective Last Vital Signs Temp 96.4 F L 03/20/22 07:42 Pulse 84 03/20/22 07:42 Resp 24 03/20/22 07:42 BP 110/67 03/20/22 07:42 Pulse Ox 95 03/20/22 07:42
--- NOTE | 2022-03-19 14:06 | PDOC.CMPRO ---
- If Service Date Differs Date of service: 03/19/22 Time of Service: 14:06 Care Management Progress Note S/O: Xavi was sitting up in bed, watching TV when CM met with him. He asked for Jovana bridges. His sister Tori will bring his supply from home, if it's safe for him to take. Per Tori, Xavi historically takes many old fashion OTC meds, and Dr. Steven recommended at one time that he limit his ASA, which is an ingredient in Jovana Selter. RN Coordinator will discuss with Dr. Steven. Per Dr. Steven, Xavi is unable to care for himself due to weakness and dyspnea. His sister Tori/ELISSA who lives next door to Xavi does not feel able to provide care for him at home. CM faxed a referral to the [facility]. Anticipate, Xavi will remain at [facility] through the weekend. A: 66 year old male admitted to [facility] on 03/17/22 on hospice for symptom management. P: Hospice pt. Xavi is admitted to [facility] for symptom management until he is able to discharge to a [facility]. Referral is pending at the [facility]. CM will arrange transportation and will continue to support Xavi during this difficult time.
[2022-03-19] MEDS: Insulin Aspart 300 UNITS/3 ML PEN 20 UNITS SC (17:21)
[2022-03-19] MEDS: levoFLOXacin 500 MG, levoFLOXacin 250 MG 750 MG PO (17:50)
[2022-03-19] MEDS: Patient's Own Medication 1 EACH MISC PO (20:51)
[2022-03-19] MEDS: Senna TAB PO (22:02)
[2022-03-19] MEDS: Acetaminophen 500 MG TAB PO (23:01)
[2022-03-19] MEDS: LORazepam 1 MG TAB PO (23:01)
[2022-03-20 07:42] VITALS: BP 110/67; PULSE 84; RESP 24; TEMP 35.8; O2SAT 95
--- NOTE | 2022-03-20 07:43 | PGE_ITS ---
Date of Service Date of service: 03/20/22 Time of Service: 07:44 Assessment and Plan Assessment and plan (1) Dyspnea: Status: Acute Assessment and plan: improving decreased oxygen flow from 5 to 4 today plan to decrease futher tomorrow encouraged nursing to walk him as far as he can tolerate to see how he does with exertion he is willing was able to sleep at 30 degrees instead of 60 degrees last night (2) Weakness: Status: Acute Assessment and plan: weak overall, due to his progressive metastatic cancer (3) Unintentional weight loss: Status: Acute Assessment and plan: sisters and staff offering him foods doesn't have much appetite (4) Pneumonia: Status: Acute Assessment and plan: likely obstructive due to his multiple lung mets from his colorectal cancer due to complete his levaquin day of discharge he was quite clear today that IF he develops another pneumonia (this is his second in 3 months), he DOES want Antibiotics again. I advised Xavi and his sisters that Dr Razo (or other PC provider) will ask him again IF he wants them, as some people with advanced cancer choose NOT to treat. (5) Respiratory distress: Status: Acute Assessment and plan: improved his primary nurse said he walked about 20-25 feet yesterday. encouraged him to try to stay as active as he can (6) Hospice care patient: Status: Acute Assessment and plan: will remain under hospice symptom management until TuesdayMarch 22. When he transfers to the [facility], he will return to Palliative Care status due to insurance issues. (7) Metastasis from colon cancer: Status: Acute Assessment and plan: Lungs are full of mets and left malignant effusion. Subjective Subjective Patient reports: feels better, tolerating a regular diet (though not eating 100%) and shortness of breath; denies nausea or fever Interval history since last seen: would like to restart his protonix Exam Narrative Exam Narrative: Chronically ill man with dark shadows under both eyes, muscular atrophy of his limbs, prominent abdominal hernia, no longer in respiratory distress. Eyes: anicteric, no ocular discharge HEENT: MMM, no nasal discharge, no severe hearing loss Neck: No LAD Lungs: . Not using accessory muscles. Lungs without crackles or wheeze. Tolerating reduction on oxygen flow from 5 L to 4 L per minute. Moving air in all cervantes, though reduced. Heart: regular normal rate Abd: prominent abdominal hernia, ileostomy right lower quadrant, bandage covering fistula on left lower quadrant, + bs, scant amount stool in bag ext: reduced pedal edema bilateral, no blistering, no skin breakdown neuro: oriented to self and place. Understands and accepts plan to stay for antibiotic treatment and symptom management through discharge planned to Tuesday. Open to transferring to [facility] on morning of Thursday 03/22. psych: not agitated, has flat affect, per his usual. Fell asleep once during visit/exam. skin: no rashes Objective Last Vital Signs Temp 96.4 F L 03/20/22 07:42 Pulse 84 03/20/22 07:42 Resp 24 03/20/22 07:42 BP 110/67 03/20/22 07:42 Pulse Ox 95 03/20/22 07:42
[2022-03-20] MEDS: Gabapentin 100 MG CAP 200 MG PO ×3 (08:33→19:22)
[2022-03-20] MEDS: Pantoprazole 40 MG TABCR PO (12:06)
[2022-03-20] MEDS: Insulin Aspart 300 UNITS/3 ML PEN 20 UNITS SC (17:08)
[2022-03-20] MEDS: levoFLOXacin 500 MG, levoFLOXacin 250 MG 750 MG PO (18:01)
[2022-03-20] MEDS: LORazepam 1 MG TAB PO (19:22)
[2022-03-20] MEDS: Senna TAB PO (20:57)
[2022-03-21] MEDS: LORazepam 1 MG TAB PO ×2 (07:25→18:21)
[2022-03-21] MEDS: Pantoprazole 40 MG TABCR PO (07:25)
[2022-03-21 07:38] VITALS: BP 101/69; PULSE 95; RESP 24; TEMP 36.8; O2SAT 93
[2022-03-21 08:22] VITALS: RESP 19
[2022-03-21] MEDS: Albuterol/Ipratropium 3 ML UPD VIAL UPD (08:22)
[2022-03-21] MEDS: Gabapentin 100 MG CAP 200 MG PO ×3 (09:02→20:18)
--- NOTE | 2022-03-21 09:07 | PGE_ITS ---
Date of Service Date of service: 03/21/22 Time of Service: 07:55 Assessment and Plan Assessment and plan (1) Hospice care patient: Status: Acute Assessment and plan: Will be revoking hospice tomorrow prior to transfer to [facility]. [facility] stay to be covered by community Medicaid x 30 days. Family and Xavi are in process of applying for [employer]. (2) Pedal edema: Status: Acute Assessment and plan: Resolved. Xavi was certain that morphine caused this s/e. No connection, but his mental illness led him to this conclusion. Has been taking some morphine as inpatient without any difficulty. (3) Weakness: Status: Acute Assessment and plan: Severe. PPS of 40-50%. Cannot walk more than 15-20 feet. (4) Unintentional weight loss: Status: Acute Assessment and plan: Due to his cancer. (5) Pneumonia: Status: Acute Assessment and plan: Finishing up his day of discharge. Xavi and family would want him to be treated for another pneumonia if another develops. Tolerated abx without s/e. (6) Chronic GERD: Status: Acute Assessment and plan: Briefly off his PPI while inpatient. Restarted as he quickly redeveloped symptoms. Also uses bryan-selzer. Would not accept TUMS. Does want Rolaids at bedside too. (7) Dyspnea: Status: Acute Assessment and plan: Severe, chronic, will not improve. Did accept morphine for symptoms while inpatient. Helped. (8) Respiratory distress: Status: Acute Assessment and plan: Resolved at rest. QUickly returns with exertion--due to his lung mets. At rest, was due to his obstructive pneumonia. (9) Metastasis from colon cancer: Status: Acute Assessment and plan: Last CXR in December 2021 showed mets too numerous to count in both lungs, and left pleural effusion. No imaging done on this admission. (10) Chronic schizophrenia: Status: Chronic Assessment and plan: Not on any psych meds. DOes have unusual ways of understanding the world. (11) Discharge planning issues: Status: Acute Assessment and plan: Dr Razo will discharge Xavi tomorrow at 7 am. He will revoke hospice after discharge and prior to [facility] admission. Family to transport. Subjective Subjective Patient reports: no new complaints, feels better, tolerating a regular diet and shortness of breath Interval history since last seen: Doing better. All set to d/c home tomorrow. Dr Razo will be coming in around 7 am to d/c him. Sister Tori will transport Xavi to [facility] by private car. He has been accepted there. Tori will co-sign revocation paperwork from hospice prior to his being admitted to the [facility]. He is now on 2.5 L/min of oxygen, which is his baseline. He is coughing less. He has been afebrile for almost 72 hrs. His GERD is feeling better since he started his PPI. He ate a full breakfast this am--sausages, 2 eggs, toast. Back to his normal intake. Nurse said he still gets very MARTIN--this is due to his multiple lung mets. He can only walk about 15-20 feet before having to sit down and rest. He quickly becomes tachypneic. He sounded tight, especially his left lung this am. He has duonebs ordered. He should finish his levaquin 750 mg tablets prior to discharge. No need to continue at the [facility]. Exam Narrative Exam Narrative: Disheveled, chronically ill man with dark shadows under both eyes, muscular atrophy of his limbs, prominent abdominal hernia, no longer in respiratory distress. Eyes: anicteric, no ocular discharge HEENT: MMM, no nasal discharge, no severe hearing loss Neck: No LAD Lungs: . Not using accessory muscles. Lungs without crackles or wheeze. Tolerating reduction on oxygen flow back to 2.5 L per minute. Moving air in all cervantes, though reduced. Sounded tighter on left side than right. Duoneb pending. Heart: regular normal rate Abd: prominent abdominal hernia, ileostomy right lower quadrant, bandage covering fistula on left lower quadrant, + bs, scant amount stool in bag ext: no pedal edema bilaterally, no blistering, no skin breakdown neuro: oriented to self and place. Understands and accepts plan to stay for antibiotic treatment and symptom management through discharge planned to Tuesday. Open to transferring to [facility] on morning of Thursday 03/22. psych: not agitated, has flat affect, per his usual. Fell asleep once during visit/exam. skin: no rashes Objective Last Vital Signs Temp 98.2 F 03/21/22 07:38 Pulse 95 H 03/21/22 07:38 Resp 24 03/21/22 07:38 BP 101/69 03/21/22 07:38 Pulse Ox 93 03/21/22 07:38
[2022-03-21] MEDS: Insulin Aspart 300 UNITS/3 ML PEN 20 UNITS SC (17:24)
[2022-03-21] MEDS: levoFLOXacin 500 MG, levoFLOXacin 250 MG 750 MG PO (18:23)
[2022-03-21] MEDS: Patient's Own Medication 1 EACH MISC PO (18:23)
--- NOTE | 2022-03-22 07:45 | W.PM.DS.N ---
Date of service: 03/22/22 Time of Service: 07:45 DS: Diagnosis Discharge Diagnosis (1) Hospice care patient: Status: Acute Asessment and Plan: His hospice status will be revoked and he will be going to the [facility] (2) Pedal edema: Status: Acute (3) Weakness: Status: Acute (4) Unintentional weight loss: Status: Acute Asessment and Plan: This is part of his metastatic disease. He can eat what ever he would like. I have reduced his diabetes medications. (5) Pneumonia: Status: Acute (6) Chronic GERD: Status: Acute (7) Dyspnea: Status: Acute Asessment and Plan: O2 sats are okay so therefore additional oxygen not needed (8) Respiratory distress: Status: Acute Asessment and Plan: He may benefit from prednisone. I will stop and see him at the [facility] and will add this to the medication list if this would be helpful (9) Metastasis from colon cancer: Status: Acute Asessment and Plan: Metastatic colon cancer with severe shortness of breath. Xavi does not ask for medications regularly. We will give him morphine 5 mg p.o. q. ID and then he may have an additional 2 doses of the 5 mg as needed. I had originally said he should get it scheduled 6 times a day but have changed this to 4 times a day. I will rewrite the prescription. Anxiety?Ativan 1 mg 3 times daily. He can have an additional 2 doses during the day if needed (10) Chronic schizophrenia: Status: Chronic Asessment and Plan: Unfortunately Xavi schizophrenia makes him paranoid. Nursing will need to be extra careful to reassure him. He may refuse any medications. (11) Discharge planning issues: Status: Acute Asessment and Plan: His sister will bring him to the [facility]. I have completed the paperwork. Discharge Plan Disposition Patient Disposition: ICF (LEVEL 2) [facility] Condition: Poor Discharge Details Reason For Visit: colon cancer with mets to the lungs Admit Date/Time: 03/17/22 16:44 Admit Provider: Kimberly Steven Attending Provider: Kimberly Steven Primary Care Provider: Elizabeth Razo Hospital Course Hospital Course: Xavi came into [facility] with worsening SOB and deterioration of ability to care for himself. From H and P: History of Present Illness History of Present Illness?Chief Complaint: respiratory distress, colon ca with mets to lung?Narrative: Xavi is a 66 yo man on hospice with schizophrenia and metastatic colon cancer. He has known lung and suspected bone mets. He developed new moderate dyspnea over the previous 48 hrs. I saw him at home earlier on the day of admission and left him and his family with the option of being admitted if his symptoms were not under adequate control with the medication changes I suggested. He has been tachypneic. He doesn't have much of a cough; he was afebrile. He describes pain in his scapula and sternum. (Suspected met sites). He has had bilateral pedal edema (new x 48 hrs). He received 60 mg of lasix today; I increased his oxygen flow from 3 to 4 L/min; I advised the family to give him 5 mg of liquid morphine q 15-30 minutes until he was comfortable and lorazepam tablets 1 mg q 1-2hrs. His oxygen sat increased from 88 to 94 with these changes. ?His lung exam was notable for decreased air movement in inferior lobe on left; no crackles. His family tried keeping him comfortable at home. They were unable to do so. Family (his dpoa/sister who lives next door) asked that he be admitted for further treatment. She doesn't feel she is capable of keeping his symptoms under control. ? Interim hx: Xavi continues to struggle with his condition. His schizophrenia makes it difficult to understand or accept that he is likely to from this disease. He did say to me that he wants to be kept comfortable and calm. His sister agrees. Nursing says that he is very suspicious and is only taking morphine at this time. He agrees it helps and agrees to continue it. He will revoke hospice and go to the [facility] on comfort care. Home Meds and New Rx's Prescriptions: Continued [place] Extra Strength 500-1,985-1,000 mg tablet, effervescent 1 - 2 tab PO DAILY PRN insulin aspart U-100 [Novolog Flexpen U-100 Insulin] 100 unit/mL (3 mL) insulin pen 20 unit Sub-Q as directed Qty: 75 0RF diphenoxylate-atropine 1 EACH tablet 0.5 - 2 tab PO QID PRN bismuth subsalicylate [Pepto-Bismol] 262 mg/15 mL suspension 262 mg PO Q6H PRN PRN Rx Instructions: do not exceed 8 doses in a 24 hour period Laxative (sennosides) 15 mg tablet 15 mg PO DAILY PRN (Reason: constipation) Qty: 7 4RF hyoscyamine sulfate 0.125 mg/mL drops 1 ml PO Q4H PRN Qty: 15 3RF Rx Instructions: 1-2 mg pantoprazole 40 mg tablet,delayed release (DR/EC) 40 mg PO DAILY Qty: 90 4RF prochlorperazine maleate 10 mg tablet 10 mg PO Q6H PRN (Reason: nausea) Qty: 7 3RF Changed morphine 20 mg/5 mL (4 mg/mL) solution See Rx Instructions .ROUTE .COMPLEX MDD 60 Qty: 30 0RF Rx Instructions: 5 mg orally ;1.25 to 1 ml SL scheduled Q6H,give 2 additional doses prn if needed for sob Held nystatin (bulk) 1 EACH powder 0 Topical DAILY Qty: 60 Hold Instructions: Resume on 03/29/22. if needed Rx Instructions: Apply around abdominal wound daily. [place] off excess, then dab on skin prep. dicyclomine 10 mg capsule 10 mg PO QID PRN Hold Instructions: Resume on 03/29/22. hold, but contact dr if it needs to be resumed Discontinued ergocalciferol (vitamin D2) [Vitamin D2] 1,250 mcg (50,000 unit) capsule 1,250 mcg PO QMONTH Qty: 3 6RF vitamin B complex Tablet 1 tab PO TID triamcinolone acetonide 80 GM ointment 2 gm Topical BID Qty: 80 melatonin 3 mg tablet 3 mg PO HS PRN (Reason: sleep) Qty: 90 3RF Victoza 3-Chung 0.6 mg/0.1 mL (18 mg/3 mL) pen injector 1.8 mg subcut DAILY Qty: 90 12RF Hold Instructions: Resume on 03/29/22. unlikely this will effect his health fluorouracil 5 % cream 1 applic topical BID 14 Days Qty: 40 3RF Rx Instructions: than once a week for maintenance lorazepam [Ativan] 1 mg tablet 1 mg PO Q4H PRN PRN Fleet Enema 19-7 gram/118 mL enema 118 ml OK DAILY PRN diphenoxylate-atropine [Lomotil] 2.5-0.025 mg tablet 0.5 tab PO QID PRN Rx Instructions: 30 minutes before meals and at bedtime morphine 20 mg/5 mL (4 mg/mL) solution 2.5 mg PO Q4H PRN Rx Instructions: 0.25 to 1 ml sublingually oxycodone 5 mg tablet 5 mg PO Q4H PRN No Action (DME) FreeStyle Lite Strips Strip 1 ea Miscellaneous AC & HS Qty: 400 4RF Rx Instructions: E11.65 AC and HS testing acetaminophen [Tylenol] 325 mg tablet 650 mg PO PRN PRN (Reason: fever or pain) Qty: 20 4RF gabapentin 100 mg capsule 200 mg PO TID Qty: 21 3RF haloperidol lactate 2 mg/mL concentrate 0.5 mg PO Q6H PRN (Reason: agitation) Qty: 15 2RF Levemir FlexTouch U-100 Insuln 100 unit/mL (3 mL) insulin pen 50 unit subcut DAILY Qty: 75 0RF Rx Instructions: E11.65 DIspense 90 day supply lorazepam [Ativan] 1 mg tablet See Rx Instructions .ROUTE .COMPLEX PRN (Reason: agitation) Qty: 30 5RF Rx Instructions: 1mg PO TID scheduled and 1 mg Q 2 hours PRN (DME) lancets [FreeStyle Lancets] 28 gauge misc 1 ea Miscellaneous TID Qty: 400 5RF Rx Instructions: E11.9 AC and HS testing (DME) BD Specialty Use [place] 25 gauge x 7/8 needle 1 ea Miscellaneous 6 times daily Qty: 100 12RF Rx Instructions: Novofine autocover 30g by 8mm; insulin dependent DM E11.39 6Xday Discharge Instructions Instructions: Colorectal Cancer (GEN) Additional Instructions: You will be transferred to [facility]. I will continue to be involved in your care. The [facility] can call me if they are unclear with your treatment Care Plan Goals: To help you be as comfortable and calm Stand Alone Forms: Nursing Discharge Form Referrals: Elizabeth Razo MD, [place] [Primary Care Provider] - (I will see him as a Palliative care pt) Activity:: Activity as Tolerated Equipment/Supplies:: Walker Diet:: As Tolerated Discharge Orders Discharge Orders: Discharge Order (Routine); Ordered 03/22/22 Ordered By: Elizabeth Razo Discharge Data Discharge Date/Time-TO BE ENTERED AT DEPARTURE: 03/22/22 09:30 DS: Summary Time Spent with Patient providing and/or coordinating discharge services: Greater than 30 minutes Status at Discharge Functional status at discharge: uses cane/walker Overall status at discharge: other Mental Status: other Speech and Movement: speech clear Mood: dysthymic mood and other Affect: dysphoric affect Exam Narrative Exam Narrative: Xavi was sitting on his back. He was talking but they were short sentences. His sister was in the room at the time. He did allow me to rub his back. He stated emphatically that he wants to be comfortable. His heart was regular. His lungs short breaths no wheezing but some rales. Abdomen large hernia mood actually he was better than baseline and that he would allow me to touch him Psych Mental Status: other Speech and Movement: speech clear Mood: dysthymic mood and other Affect: dysphoric affect DS: Data Vitals/I&O Vitals and I&O: Vital Signs Temperature 98.2 F 03/21/22 07:38 Temperature Source Tympanic 03/21/22 07:38 Pulse 95 H 03/21/22 07:38 Pulse Rhythm Irregular 03/22/22 04:00 Respiratory Rate 24 03/21/22 07:38 Respiratory Effort Tripod 03/22/22 04:00 Respiratory Depth Shallow 03/22/22 04:00 Respiratory Pattern Normal 03/22/22 04:00 Blood Pressure 101/69 03/21/22 07:38 Pulse Oximetry 93 03/21/22 07:38 Oxygen Delivery Method Nasal Cannula 03/21/22 20:15 Oxygen Flow Rate 2 03/21/22 20:15 Pain Level 5 03/22/22 04:03 Intake & Output 03/21/22 03/21/22 03/22/22 11:59 23:59 11:59 Intake Total 2100 / 2100 500 / 500 Output Total 900 / 2240 1340 / 2240 1200 / 1200 Balance -900 / -140 760 / -140 -700 / -700 Intake: Oral 2100 / 2100 500 / 500 Output: Urine 500 / 1200 700 / 1200 700 / 700 Stool 400 / 1040 640 / 1040 500 / 500 Other: Urine Color Yellow Yellow Straw Light Sherry Urine Appearance Clear Clear Clear Stool Characteristics Soft Soft Brown Brown Voiding Methods Urinal Urinal Urinal Data Completed and Pending Completed studies during hospitalization [Text1]: 0 Pending studies at discharge: 0 Labs on day of discharge: 0 PFSH All Active Problems (Updated 03/21/22 @ 09:21 by Kimberly Steven MD) Discharge planning issues (Acute) Chronic GERD (Acute) Dyspnea (Acute) Weakness (Acute) Unintentional weight loss (Acute) Pneumonia (Acute) no CXR done on admit. Dx based on fever, resp distress, crackles Pedal edema (Acute) Respiratory distress (Acute) Hospice care patient (Acute) Weight loss (Acute) Vaccination hesitancy by patient (Acute) Physician orders for life-sustaining treatment (POLST) form indicates patient wish for [id number] status (Acute) DNR (do not resuscitate) (Acute) Metastasis from colon cancer (Acute) left nasal lesion and pulmonary mets Skin lesion (Acute) Ganglion, left wrist (Acute) Vitamin D deficiency (Chronic 07/07/15) Pulmonary nodules (Chronic 03/21/17) [facility]; DR. MUNOZ; RESSECTION IS RECCOMENDED,HOWEVER PATIENT HAS DECLINED-per JMD Nuclear sclerosis (Chronic 08/30/13) 08/29/13 [facility]; O.U. 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 resolved in the last year GERD (gastroesophageal reflux disease) (Chronic) type 2 diabetes with poor control (Chronic) Hyperlipidemia (Chronic) a. 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 Brandon Tubular adenoma Surgical History H/O surgical procedure 12/03/14 revision of end ileostomy Hemicolectomy RIGHT History of surgical procedure (12/03/14) REVISION OF END ILEOSTOMY SIGMOID COLECTOMY (11/12/14) Family History Maternal Cousin Factor 5 Leiden mutation, heterozygous Social History Smoking/Tobacco Use Status: Former Tobacco Use tobacco type: cigarettes Second Hand Exposure: Yes Smoking risk assessment performed?: Yes Alcohol Intake: former Drug use: Never Caregiver/Support person: No Household members: none Housing: house Communication Needs: None Do you need help understanding health information?: Rarely Pets and animals: No Sexually active: No Do you think of yourself as: straight/heterosexual Current gender identity: male What is your relationship status?: never How often do you talk on the phone with friends or family?: three or more times per week How often do you get together with friends or relatives?: twice per week Do you belong to any clubs or organized social groups?: no Panel score (0-1 are the most socially isolated patients): 1 What type of physical activity do you participate in: walking Duration: < 15 minutes/day
--- NOTE | 2022-03-22 08:05 | PDOC.CMDIS ---
- If Service Date Differs Date of service: 03/22/22 Time of Service: 08:05 LACE Index Scoring Tool - Questions: Length of Stay (in days): 4 - 6 Acuity (Admit via E.D.?): No Comorbidities: Diabetes w/o Complication, Any Tumor E.D. Visits: 0 - Answers: Total Score: 7 Risk of Readmission: Low Risk Care Management Discharge Reason for Hospitalization: Metastatic cancer Discharge Plan: Xvai will discharge to the [facility] for skilled RN end of life care. He will transport via private vehicle with his daughter. Plan pre-arranged over weekend. Patient/Family Education Needs: Review discharge instructions, discuss Ask Me Three. Services Needed at Discharge: Senior Care Facility ([facility])
== END 2022-03-22 09:30 | disposition intermediate care facility (04) | DRG 180 ==
PROVIDERS: Admitting Provider Family Medicine; PCP Family Medicine; Visit Provider Family Medicine
DX: C78.01 Secondary malignant neoplasm of right lung (principal); J18.9 Pneumonia, unspecified organism; C18.2 Malignant neoplasm of ascending colon; C77.2 Secondary and unspecified malignant neoplasm of intra-abdominal lymph nodes; C79.51 Secondary malignant neoplasm of bone; J91.0 Malignant pleural effusion; C78.02 Secondary malignant neoplasm of left lung; Z51.5 Encounter for palliative care; G89.3 Neoplasm related pain (acute) (chronic); R60.0 Localized edema; F20.9 Schizophrenia, unspecified; Z90.49 Acquired absence of other specified parts of digestive tract; R63.4 Abnormal weight loss; Z66 Do not resuscitate; E55.9 Vitamin D deficiency, unspecified; D50.9 Iron deficiency anemia, unspecified; E78.5 Hyperlipidemia, unspecified; E11.42 Type 2 diabetes mellitus with diabetic polyneuropathy; D64.9 Anemia, unspecified; K21.9 Gastro-esophageal reflux disease without esophagitis; E11.65 Type 2 diabetes mellitus with hyperglycemia; I10 Essential (primary) hypertension; E11.319 Type 2 diabetes mellitus with unspecified diabetic retinopathy without macular edema; Z87.891 Personal history of nicotine dependence; Z79.4 Long term (current) use of insulin; K46.9 Unspecified abdominal hernia without obstruction or gangrene; Z93.2 Ileostomy status; R53.1 Weakness; F41.9 Anxiety disorder, unspecified
CPT/HCPCS: 87635; 94640; J3490; J7620